=== PATIENT | male | born 1955 | race Caucasian/White ===

== ENCOUNTER 2018-09-05 09:37 | Inpatient (IN) ==
[2018-09-05] MEDS ORDERED: DAPTOmycin 450 MG in SYRINGE 0 ML IV ONE (09:59)
[2018-09-05] MEDS ORDERED: PIPERACILLIN/TAZOBACTAM 4.5 GM/120 ML BAG IV STA (09:59)
[2018-09-05] MEDS ORDERED: SODIUM CHLORIDE 0.9% 1000ML 1,000 ML IV SCH ×3 (10:00→22:00)
--- NOTE | 2018-09-05 10:19 | XRay Report ---
XR chest 1V portable HISTORY: 62 years-old Male fever acute fever COMPARISON: None available TECHNIQUE: Portable AP view of the chest FINDINGS: Cardiomediastinal and hilar silhouettes are within normal limits. Mild left hemidiaphragmatic elevati on. Minimal subsegmental left basilar atelectasis. There is no pneumothorax, pleural effusion, focal airspace consolidation or overt pulmonary edema. Degenerative changes of the shoulders and spine. IMPRESSION: Mild left hemidiaphragmatic elevation without acute process. The above report was generated using voice recognition software. It may contain grammatical, syntax o r spelling errors. Electronically signed by: Obi Rdz M.D. 09/05/2018 10:18 AM
[2018-09-05 10:41] LABS: Basophils # (auto) 0.01 K/uL (0-0.2); Basophils % (auto) 0.1 %; Eosinophils # (auto) 0.05 K/uL (0-0.5); Eosinophils % (auto) 0.4 %; Hemoglobin 11.6 g/dL (14.0-18.0); Immature Granulocytes # (auto) 0.05 K/uL (0.00-0.02); Immature Granulocytes % (auto) 0.4 %; Lymphocytes # (auto) 0.99 K/uL (1.2-3.4); Lymphocytes % (auto) 7.2 %; Mean Corpuscular Hgb Conc 34.1 g/dL (32-36); Mean Corpuscular Volume 91.6 fL (80-100); Mean Platelet Volume 9.1 fL (7.4-10.4); Monocytes # (auto) 0.94 K/uL (0.11-0.59); Monocytes % (auto) 6.8 %; Neutrophils # (auto) 11.78 K/uL (1.4-6.5); Neutrophils % (auto) 85.1 %; Platelet Count 254 K/uL (130-400); RDW Coefficient of Variation 13.9 % (11.5-14.5); RDW Standard Deviation 46.8 fL (36.4-46.3); Red Blood Count 3.71 M/uL (4.7-6.1); White Blood Count 13.82 K/uL (4.8-10.8)
[2018-09-05 10:48] LABS: Alanine Aminotransferase 16 U/L (12-78); Albumin Level 2.8 gm/dl (3.4-5.0); Aspartate Aminotransferase 25 U/L (15-37); BUN Creatinine Ratio 16.1 (10-20); Blood Urea Nitrogen 17 mg/dl (7-18); Calcium 9.3 mg/dl (8.5-10.1); Carbon Dioxide 30 mmol/L (21-32); Chloride 99 mmol/L (98-107); Creatinine Clr Calc Pharmacy 77.2 ml/min; Est GFR (Non-African American) 76.8; Glucose 95 mg/dl (70-99); Sodium 135 mmol/L (136-145)
[2018-09-05 10:53] LABS: Albumin Globulin Ratio 0.7 (0.9-2); Alkaline Phosphatase 126 U/L (45-117); Bilirubin,Total 0.7 mg/dl (0.2-1); Globulin 4.1 gm/dl (2.5-4.0); Total Protein 6.9 gm/dl (6.4-8.2); Troponin I < 0.015 ng/ml (0-0.045)
[2018-09-05 12:12] LABS: Appearance Urine Clear (Clear); Bilirubin Urine Negative (Negative); Blood Urine Trace (Negative); Color Urine Yellow; Glucose Urine UA Negative (Negative); Ketones Urine Negative (Negative); Leukocyte Esterase Urine Negative (Negative); Nitrite Urine Negative (Negative); Protein Urine Negative (Negative); Specific Gravity Urine 1.011 (1.000-1.030); Urobilinogen Urine Negative (Negative); pH Urine 6.5 (4.5-7.5)
[2018-09-05 12:24] LABS: RBC Urine Automated 0-4 /hpf (0-4)
[2018-09-05 12:26] LABS: Bacteria Urine Automated Negative (Negative)
[2018-09-05] MEDS ORDERED: MoRPHine SULFATE 2 MG/ML CARP IV PRN (12:46)
[2018-09-05] MEDS ORDERED: BISACODYL 5 MG TABEC PO ONE (12:46)
[2018-09-05] MEDS ORDERED: MoRPHine SULFATE 2 MG/ML CARP IV STA (12:48)
--- NOTE | 2018-09-05 13:26 | History & Physical Report ---
Date of Service September 05, 2018 Assessment & Plan (1) MRSA bacteremia: ` Outpatient blood culture 09/04/2018: MRSA bacteremia -Repeat blood cultures ordered -ID consulted appreciate input recommends daptomycin and Teflaro-ordered (2) Cellulitis of chest wall: (3) Septic joint of left shoulder region: Pt presented with onset of left shoulder pain 2 weeks ago. Patient has had significant progression of left shoulder pain extending to left neck and left chest. Had several outpatient visits in ER visit for left shoulder pain. Patient had MRI C-spine on 09/02/2018: 1. No fractures or subluxation within the cervical spine. 2. [id number] degenerative disc disease and mild facet osteoarthritis throughout the cervical spine as described above. This results in multilevel bilateral neural foraminal narrowing most pronounced at the C4-C5 level. 3. No significant central canal narrowing. 4. Normal cervical spinal cord. 09/02/2018 left shoulder x-ray: Impression: No fracture. Alignment is WNL. Mild acromioclavicular osteoarthritis. Soft tissues are unremarkable. Patient had reported fevers outpatient. 09/04/2018 patient had outpatient labs revealing white count 15,000, blood cultures positive for MRSA and patient was referred to the ER today. In ER patient initially afebrile, peak: 110, RR: 20, BP: 136/79, 97% on room air. WBC: 13. POC lactic acid: 0.8 -In ER patient was started on daptomycin, Zosyn. Received [address] CHEST: 1. Findings highly suspicious for septic arthritis of the left sternoclavicular joint with secondary severe myositis/pyomyositis involving the left pectoralis muscle complex, left sternoclavicular muscle, and left subclavius muscle. However, no CT evidence of osteomyelitis. The presence of developing intramuscular abscesses in the left pectoralis muscle complex is suspected as well as phlegmon in the anterior superior mediastinum or immediately superficial to the anterior superior mediastinum. 2. Either severe stenosis or less likely thrombosis of the left subclavian vein. A dedicated left upper extremity Doppler examination with special attention to the left subclavian and left axillary veins it is recommended for further assessment. 3. Minimal left basilar atelectasis. 4. Small pericardial effusion. CT SOFT TISSUE NECK: Extensive infectious process within the left lower neck and upper chest. The findings raise the possibility of septic arthritis of the left sternoclavicular joint with associated myositis/pyomyositis of the left pectoralis and sternoclavicular muscles with suspected developing intramuscular abscesses. Left supraclavicular abscess results in moderate narrowing of the distal left internal jugular vein. Possible thrombus within the left axillary vein which can be assessed with left upper extremity venous Doppler to exclude septic thrombophlebitis. Inflammation extends into the superior mediastinum and close clinical follow-up is recommended given the potential for mediastinitis. Trace left pleural effusion. -Repeat blood cultures pending -ID consulted and recommends daptomycin and Teflaro -CT Surgery consulted - planned procedure tomorrow -NPO after midnight -Pending LUE US -Clear liquids -Speech eval -IVF -Morphine, oxycodone prn pain -CBC, BMP in am (4) Hypothyroidism: -On levothyroxine DVT Prophylaxis: SCDs Full Code as per discussion with pt Follows with Dr Israel Tee for routine care Pt was seen and care coordinated with Dr Chong. See addendum History of Present Illness Chief Complaint: Abnormal labs Primary Care Provider: Israel Tee, Pt is 62 y/o M with PMH hypothyroidism was referred to ER from PCP's office for abnormal labs - Positive blood cultures. Patient reports 2 weeks ago started with left anterior shoulder pain that radiated to lateral and posterior neck. Patient was seen by PCP and 08/25/2018 and was thought secondary to muscle strain and was started on baclofen and Medrol. Patient had continued pain and was seen in ER 08/28/2018 and at that time his WBC: 10 and was given prescription for oxycodone. Patient followed up with PCP 09/02/2018 with continued pain and had left finger paresthesias. At that time also reported urinary urgency and did not make it to the bathroom a couple of times. Denies any other urinary incontinence, dysuria. On 09/02/2018 patient had an MRI C-spine which showed no fracture and showed degenerative disc disease. X-ray left shoulder unremarkable. Patient states 09/03/2018 developed fever. He had negative urine culture. 09/04/2018 patient had outpatient lab work and had noted WBC of 15,000 and had blood cultures drawn. Today blood cultures positive methicillin r esistant staph aureus patient was referred to ER. Patient reports limited ROM of left shoulder as causes increased pain. ROM of neck causes pain also. He was not aware that he had any chest edema or erythema. He does note that he has been having trouble swallowing large bites of solid food over the past 4 days. He denies choking episodes. Reports nausea last week no vomiting. Patient states prior to pain he was weightlifting otherwise denies any known trauma. Denies any open wounds or lesions. Denies any rashes or known insect bites/stings. Pt reports no BM in couple of days since taking pain medication. C/O NAIR several days ago, none today. Denies back pain, diaphoresis, dizziness, syncope, vision changes, CP, SOB, orthopnea, palpitations, cough, sore throat, rhinorrhea, abdominal pain, paresthesias, weakness, extremity weakness, extremity edema, rashes, dysuria, hematuria. Denies any history of valve replacement, joint replacement. Allergies Allergy/AdvReac Type Severity Reaction Status Date / Time No Known Allergies Allergy Unverified 09/05/18 11:22 Home Medications Home Medications Medication Instructions Recorded Confirmed Type levothyroxine 50 mcg PO QAM 08/28/18 09/05/18 History oxycodone-acetaminophen [Percocet] 1 tab PO Q6H PRN #14 tab 08/28/18 09/05/18 Rx trazodone 50 mg PO HS 08/28/18 09/05/18 History cyclobenzaprine 10 mg PO BID 09/05/18 09/05/18 History Past Med/Surg History Medical History Seizure disorder (Chronic) Last seizure in high school. 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 Beliefs That Will Affect Care: None Current Living Situation: Spouse current occupational status: employed current occupation: [employer] Other Information That Helps Us Care for You: No Feels Safe at Home: Yes Safety Concerns: Feels Safe At This Time Smoking Status: Never smoker Do You Dip or Chew Tobacco: No Second Hand Exposure: No Tobacco Cessation Education Requested by Patient: No Hx Alcohol Use: No Hx Substance Use: No Review of Systems Review of Systems: All systems reviewed & are unremarkable except as noted in HPI & below Physical Exam Physical Exam: General: no acute distress, ill appearing, WDWN Head: normocephalic, atraumatic Eyes: PERRL, EOM's intact, conjunctiva non-injected, anicteric ENT: normal inspection external ears, nose, mucous membranes mildly dry Neck: supple, trachea midline, + edema lateral neck without erythema, + tenderness to palpation; posterior neck without erythema and non-tender to palpation, limited flexion and extension neck with increased tenderness Lungs: clear, no respiratory distress, no wheezing/rhonchi/rales Chest wall: +erythema, edema and warmth to left anterior chest wall over left pectoralis extending to sternum and clavicle, +significant tenderness to palpation CV: sinus tachycardia, P: 110, no murmur, no pretibial edema Abd: normal BS, soft, non-tender Ext: L Shoulder: No significant erythema of shoulder, Limited active ROM left shoulder and with significant tenderness, +tenderness to palpation anterior shoulder, clavicular region. extension of flexion of L elbow and wrist and fingers intact; distal pulses intact. Neuro: A&O x 3, no focal deficits noted, normal affect Skin: warm, dry, as above in chest Results & Data Vital Signs (Past 12 Hours) Vital Signs Temp Pulse Pulse Resp BP BP Pulse Ox 09/05/18 11:37 98 H 16 157/96 H 97 09/05/18 09:39 36.7 C 110 H 20 136/79 97 Laboratory Results Short CBC 09/05/18 Range/Units 10:12 WBC 13.82 H (4.8-10.8) K/uL Hgb 11.6 L (14.0-18.0) g/dL Hct 34.0 L (42-52) % Plt Count 254 (130-400) K/uL BMP 09/05/18 10:12 Sodium 135 L Potassium 4.0 Chloride 99 Carbon Dioxide 30 BUN 17 Creatinine 1.05 Glucose 95 Calcium 9.3 Cardiac Enzymes 09/05/18 Range/Units 10:12 Troponin I < 0.015 (0-0.045) ng/ml Liver Function 09/05/18 Range/Units 10:12 Total Bilirubin 0.7 (0.2-1) mg/dl AST 25 (15-37) U/L ALT 16 (12-78) U/L Alkaline Phosphatase 126 H (45-117) U/L Albumin 2.8 L (3.4-5.0) gm/dl Urine 09/05/18 Range/Units 11:50 Urine Color Yellow Urine Appearance Clear (Clear) Urine pH 6.5 (4.5-7.5) Ur Specific [place] 1.011 (1.000-1.030) Urine Protein Negative (Negative) Urine Glucose (UA) Negative (Negative) Diagnostic Findings CXR: IMPRESSION: Mild left hemidiaphragmatic elevation without acute process. CT CHEST: IMPRESSION: 1. Findings highly suspicious for septic arthritis of the left sternoclavicular joint with secondary severe myositis/pyomyositis involving the left pectoralis muscle complex, left sternoclavicular muscle, and left subclavius muscle. However, no CT evidence of osteomyelitis. The presence of developing intramuscular abscesses in the left pectoralis muscle complex is suspected as well as phlegmon in the anterior superior mediastinum or immediately superficial to the anterior superior mediastinum. 2. Either severe stenosis or less likely thrombosis of the left subclavian vein. A dedicated left upper extremity Doppler examination with special attention to the left subclavian and left axillary veins it is recommended for further assessment. 3. Minimal left basilar atelectasis. 4. Small pericardial effusion. CT SOFT TISSUE NECK: IMPRESSION: Extensive infectious process within the left lower neck and upper chest. The findings raise the possibility of septic arthritis of the left sternoclavicular joint with associated myositis/pyomyositis of the left pectoralis and sternoclavicular muscles with suspected developing intramuscular abscesses. Left supraclavicular abscess results in moderate narrowing of the distal left internal jugular vein. Possible thrombus within the left axillary vein which can be assessed with left upper extremity venous Doppler to exclude septic thrombophlebitis. Inflammation extends into the superior mediastinum and close clinical follow-up is recommended given the potential for mediastinitis. Trace left pleural effusion. Supervising Physician Co-Signing Physician Notes Attending addendum: Seen and examined, care coordinated with Anna Coleman PA-C Labs and images reviewed This is a 62-year-old significant past medical history presented to ER with intractable left neck shoulder and anterior chest wall pain associate with fever and chills His symptoms been ongoing for the past 2 weeks Culture drawn to yesterday at [facility] on 09/04/2018 2 bottles positive for Staphylococcus aureus MRSA Patient admitted to telemetry, started with empiric antibiotic with daptomycin, repeat blood cultures ordered CT chest and neck with contrast ordered CT chest with contrast: And CT neck with contrast reports reviewed Finding highly suspicious for septic arthritis of the left sternoclavicular joint-with extensive myositis with possible abscess involving left pectoralis muscle/left sternoclavicular muscle There is concern for developing intramuscular abscess/as well as infection in anterior superior mediastinal or is immediately superficial to the anterior superior mediastinum Severe stenosis or less likely thrombosis of left subclavian vein, a dedicated left upper extremity Doppler examination with special attention to the left subclavian and left axillary vein is recommended for further assessment CT surgery consulted Plan for surgical I&D procedure tomorrow discussed the case with infectious disease Dr Zafar -we will DC Zosyn, continue daptomycin, added Teflaro Please refer to further documentation by Kayla Coleman PA-C for discussion of other issues Juana Chong MD
[2018-09-05] MEDS ORDERED: IOVERSOL 100ml IV PRN (13:34)
[2018-09-05] MEDS ORDERED: ONDANSETRON INJ 2 MG/ML 2 ML VIAL IV PRN (13:46)
[2018-09-05] MEDS ORDERED: ALUMINUM/MAGNESIUM SUSP 30 ML UDC PO PRN (13:46)
[2018-09-05] MEDS ORDERED: MAGNESIUM HYDROXIDE SUSP 30 ML UDC PO PRN (13:46)
[2018-09-05] MEDS ORDERED: ACETAMINOPHEN 325 MG TAB PO PRN (13:46)
[2018-09-05] MEDS ORDERED: POLYETHYLENE (MIRALAX) 17 GM PACK PO PRN (13:46)
[2018-09-05] MEDS ORDERED: PIPERACILL/TAZOBAC CONSULT ACTIVE PRN (13:46)
--- NOTE | 2018-09-05 13:53 | CT Scan Report ---
CT chest w con CLINICAL HISTORY: 62 years-old Male presenting with left-sided pain, chest wall pain, chest wall infe ction /abscess. TECHNIQUE: Multidetector CT imaging of the chest was performed after the administration of intravenou s contrast. IV contrast: 94 mL of Optiray 320. One or more dose lowering techniques were used consist ent with the principles of ALARA (as low as reasonably achievable), including automatic exposure cont rol, mA or kV adjustment to individual patient size, and/or use of iterative reconstruction. COMPARISON: None. CT DOSE (mGy.cm): The estimated cumulative dose is 725.73. FINDINGS: Product Assurance Engineer topogram: Unremarkable. Soft tissues: Swelling and inflammatory change centered around the left sternoclavicular joint, which is itself distended with fluid. There is heterogeneous enhancement of the left pectoralis muscle com plex with suggestion of hypoattenuation likely indicating developing collections (series 7 image 53). Swelling of the left subclavian is muscle and inflammation deep to the left sternoclavicular joint w ith resultant inflammatory change either in the anterior mediastinum or immediately superficial to th e anterior superior mediastinum. The left brachiocephalic vein is compressed at the confluence of the left internal jugular and left subclavian vein. The left subclavian vein is poorly delineated and is suspected to be severely stenotic due to mass effect. An alternate diagnostic consideration is throm bosis or direct involvement of the left subclavian vein. The left axillary vein is distended with hyp oenhancement most suggestive of delayed opacification or less likely thrombosis. The aortic arch and major branch vessels are patent and nonstenotic. Inflammatory change extends into the left neck with edema in the left sternoclavicular muscle and extensive skin thickening and subcutaneous fat infiltra tion. This also extends inferiorly involving a majority of the left chest wall anterolaterally. Lyubov l heart size. Coronary artery calcification. Small pericardial effusion. No pleural effusion. Upper a bdomen normal. Lungs and airways: No pneumothorax. Central airways patent. Pulmonary arteries are not significantly enlarged relative to adjacent bronchi. No interlobular septal thickening. Dependent consolidation to a minimal degree in the left lung base likely atelectasis. No other focal infiltrate or nodule. Mass effect on the anterior paramediastinal left apex. There is no significant involvement of the lung par enchyma. Musculoskeletal: Fluid distended left sternoclavicular joint. There is no osseous erosion or perioste al reaction to suggest CT evidence of osteomyelitis. IMPRESSION: 1. Findings highly suspicious for septic arthritis of the left sternoclavicular joint with secondary severe myositis/pyomyositis involving the left pectoralis muscle complex, left sternoclavicular musc le, and left subclavius muscle. However, no CT evidence of osteomyelitis. The presence of developing intramuscular abscesses in the left pectoralis muscle complex is suspected as well as phlegmon in the anterior superior mediastinum or immediately superficial to the anterior superior mediastinum. 2. Either severe stenosis or less likely thrombosis of the left subclavian vein. A dedicated left up per extremity Doppler examination with special attention to the left subclavian and left axillary vei ns it is recommended for further assessment. 3. Minimal left basilar atelectasis. 4. Small pericardial effusion. The report will be called/faxed according to standard departmental protocol. Electronically signed by: Dmitriy Doll M.D. 09/05/2018 1:52 PM
--- NOTE | 2018-09-05 13:55 | CT Scan Report ---
CT OF THE NECK WITH IV CONTRAST CLINICAL HISTORY: Neck pain. Evaluate for abscess. COMPARISON STUDY: MRI of the cervical spine September 02, 2018. TECHNIQUE: Following IV administration of 94 mL of Optiray-320, helical axial images of the neck wer e obtained. Sagittal and coronal reconstructions were viewed. Automated exposure control was utiliz ed for the study. A dose lowering technique was utilized adhering to the principles of ALARA. CT DOSE: 725.73 mGy.cm FINDINGS: Visualized portions of the intracranial contents are unremarkable. There is no prevertebra l edema. The epiglottis is normal. There is no abscess within the upper neck. Note is made of extensi ve inflammatory process which appears to be centered on the left sternoclavicular joint. There is inc reased fluid within the left sternoclavicular joint. Extensive inflammation extends into the left pec toralis major muscle. There is a subtle peripherally enhancing fluid collection within the left pecto ralis muscle on axial image 104 of 109 which is suspicious for developing intramuscular abscess. The inflammatory process extends into the left supraclavicular region. Note is made of a 1.8 cm left supr aclavicular fluid collection on image 86 with mass effect upon the left internal jugular vein which r emains patent. There is moderate narrowing of the distal left internal jugular vein. There is dilatat ion of the left axillary vein and its branches. Involvement of the left sternoclavicular muscle is al so noted with heterogeneity and adjacent infiltration. Inflammatory process may extend into the anter ior mediastinum. A trace left pleural effusion is noted. The chest will be reported separately. The a irways patent. There is no CT evidence for osteomyelitis. IMPRESSION: Extensive infectious process within the left lower neck and upper chest. The findings raise the possi bility of septic arthritis of the left sternoclavicular joint with associated myositis/pyomyositis of the left pectoralis and sternoclavicular muscles with suspected developing intramuscular abscesses. Left supraclavicular abscess results in moderate narrowing of the distal left internal jugular vein. Possible thrombus within the left axillary vein which can be assessed with left upper extremity venou s Doppler to exclude septic thrombophlebitis. Inflammation extends into the superior mediastinum and close clinical follow-up is recommended given the potential for mediastinitis. Trace left pleural eff usion. Electronically signed by: Tree Leon M.D. 09/05/2018 1:54 PM
--- NOTE | 2018-09-05 14:13 | Hospitalist Progress Note ---
Date of Service September 05, [address] chest with contrast: And CT neck with contrast reviewed Finding highly suspicious for septic arthritis of the left sternoclavicular joint-with extensive myositis with possible abscess involving left pectoralis muscle/left sternoclavicular muscle There is concern for developing intramuscular abscess/as well as infection in anterior superior mediastinal or is immediately superficial to the anterior superior mediastinum Severe stenosis or less likely thrombosis of left subclavian vein, a dedicated left upper extremity Doppler examination with special attention to the left subclavian and left axillary vein is recommended for further assessment General surgery consulted, Case discussed with on-call general surgery PA, patient will be evaluated by the team soon discussed the case with infectious disease Dr Zafar -given the complexity of inflammation/infection and widespread involvement including intramuscular, sternoclavicular joint, multiple vessels, possible superior mediastinal involvement, pt will benefit with transfer to Tertiary care for complex /multispeciality intervention Results & Data Vital Signs (Past 12 Hours) Vital Signs Temp Pulse Pulse Resp BP BP Pulse Ox 09/05/18 13:47 37.8 C H 118 H 20 154/88 H 99 09/05/18 11:37 98 H 16 157/96 H 97 09/05/18 09:39 36.7 C 110 H 20 136/79 97
[2018-09-05] MEDS: DOCUSATE SODIUM 100 MG CAP PO SCH ×2 (14:17→21:45)
[2018-09-05] MEDS ORDERED: ACETAMINOPHEN 1,000 MG/100 ML VIAL IV STA (14:21)
[2018-09-05] MEDS ORDERED: ACETAMINOPHEN 1,000 MG/100 ML VIAL IV PRN (14:22)
[2018-09-05] MEDS ORDERED: [UNRECOGNIZED DRUG - REMARK] PRN (14:26)
[2018-09-05] MEDS ORDERED: CEFTAROLINE FOSAMIL ACETATE 600 MG in SODIUM CHLORIDE 0.9% 250 ML IV ONE (14:30)
--- NOTE | 2018-09-05 14:30 | Infectious Disease Consult ---
Date of Consultation September 05, 2018 Assessment & Plan (1) MRSA bacteremia: 62-year-old male with MRSA bacteremia left chest wall, neck, and shoulder phlegmon with developing abscesses. No obvious original source of infection apparent. Have recommended addition of ceftaroline 600 mg every 12 hours to daptomycin, and discussed with hospitalist service the likelihood of transfer to tertiary care center for further management given the extent and site of infection. Will follow while here. (2) Abscess of chest wall: History of Present Illness Reason for Consultation: MRSA bacteremia Attending Physician: Juana Chong MD History of Present Illness 62-year-old male with history of seizure disorder, hypothyroidism, otherwise in good health was well until approximately 2 weeks ago, when he developed onset of left shoulder and neck pain. Symptoms gradually worsened, saw his primary care doctor who prescribed baclofen and Solu-Medrol. Symptoms failed to improve, was seen in the emergency room on the ninth where was thought to have musculoskeletal strain, given analgesics and discharged home. Then developed progressively worsening symptoms along with fever and shaking chills. Was found to have leukocytosis and subsequent blood cultures have returned positive for MRSA. Had CT scan done, read by me, which shows evidence of extensive infection in the left shoulder, neck, and possibly extending into the mediastinum with abscess formation in the pectoralis and supraclavicular muscles. Has been start ed on daptomycin and Zosyn. Follow-up blood cultures are pending. Patient currently having rigors. Allergies Allergy/AdvReac Type Severity Reaction Status Date / Time No Known Allergies Allergy Unverified 09/05/18 11:22 Home Medications Home Medications Medication Instructions Recorded Confirmed Type levothyroxine 50 mcg PO QAM 08/28/18 09/05/18 History oxycodone-acetaminophen [Percocet] 1 tab PO Q6H PRN #14 tab 08/28/18 09/05/18 Rx trazodone 50 mg PO HS 08/28/18 09/05/18 History cyclobenzaprine 10 mg PO BID 09/05/18 09/05/18 History Patient History Medical History Seizure disorder (Chronic) Last seizure in high school. Off meds since Hypothyroidism (Chronic) Hypothyroidism Surgical History No significant past surgical history Family History Other COPD (chronic obstructive pulmonary disease) Heart disease Social History Preferred Language: Tanzanian Communication Ability: Effective Maternal Child Nurse Required: No Beliefs That Will Affect Care: None Current Living Situation: Spouse current occupational status: employed current occupation: [employer] Other Information That Helps Us Care for You: No Feels Safe at Home: Yes Safety Concerns: Feels Safe At This Time Smoking Status: Never smoker Do You Dip or Chew Tobacco: No Second Hand Exposure: No Tobacco Cessation Education Requested by Patient: No Hx Alcohol Use: No Hx Substance Use: No Review of Systems Review of Systems: All systems reviewed & are unremarkable except as noted in HPI & below Physical Exam Constitutional: WD/WN, vitals as above + in distress and + diaphoretic Eyes: PERRL, conjunctivae normal, anicteric sclerae ENMT: external ear and nose normal, oropharynx normal Neck: trachea midline, no thyromegaly neck nontender Respiratory: normal respiratory effort, lungs clear to auscultation normal percussion; does not use accessory muscles Cardiovascular: Rate/Rhythm: regular rate and regular rhythm Heart Sounds: normal S1 and normal S2; no gallop, no murmur and no cardiac rub Vessels: normal peripheral pulses; no JVD Gastrointestinal (Abdomen): normal bowel sounds, soft, nontender, no hepatospl enomegaly Musculoskeletal: no cyanosis or clubbing, extremities motor strength 5/5 Spine: thoracic spine normal to inspection and lumbar spine normal to inspection; no cervical spinal tenderness Skin: normal turgor and + erythema (Left anterior chest wall and shoulder area with erythema and induration); no rashes Neurologic: patellar DTR's 2+ bilat, sensation intact no focal motor deficits Psychiatric: A+Ox3, euthymic affect Orientation: cooperative Lymphatic: no cervical or axillary lymphadenopathy no inguinal lymphadenopathy Results & Data Vital Signs (Past 12 Hours) Vital Signs Temp Pulse Pulse Resp BP BP Pulse Ox 09/05/18 13:47 37.8 C H 118 H 20 154/88 H 99 09/05/18 11:37 98 H 16 157/96 H 97 09/05/18 09:39 36.7 C 110 H 20 136/79 97 Laboratory Results Short CBC 09/05/18 Range/Units 10:12 WBC 13.82 H (4.8-10.8) K/uL Hgb 11.6 L (14.0-18.0) g/dL Hct 34.0 L (42-52) % Plt Count 254 (130-400) K/uL BMP 09/05/18 10:12 Sodium 135 L Potassium 4.0 Chloride 99 Carbon Dioxide 30 BUN 17 Creatinine 1.05 Glucose 95 Calcium 9.3 Cardiac Enzymes 09/05/18 Range/Units 10:12 Troponin I < 0.015 (0-0.045) ng/ml Liver Function 09/05/18 Range/Units 10:12 Total Bilirubin 0.7 (0.2-1) mg/dl AST 25 (15-37) U/L ALT 16 (12-78) U/L Alkaline Phosphatase 126 H (45-117) U/L Albumin 2.8 L (3.4-5.0) gm/dl Urine 09/05/18 Range/Units 11:50 Urine Color Yellow Urine Appearance Clear (Clear) Urine pH 6.5 (4.5-7.5) Ur Specific [place] 1.011 (1.000-1.030) Urine Protein Negative (Negative) Urine Glucose (UA) Negative (Negative) Diagnostic Findings Microbiology 09/05/18 10:12 Blood Aerobic Blood Culture - Final 09/05/18 10:12 Blood Aerobic Blood Culture - Final 09/05/18 10:12 Blood Anaerobic Blood Culture - Preliminary CT OF THE NECK WITH IV CONTRAST CLINICAL HISTORY: Neck pain. Evaluate for abscess. COMPARISON STUDY: MRI of the cervical spine September 02, 2018. TECHNIQUE: Following IV administration of 94 mL of Optiray-320, helical axial images of the neck were obtained. Sagittal and coronal reconstructions were viewed. Automated exposure control was utilized for the study. A dose lowering technique was utilized adhering to the principles of ALARA. CT DOSE: 725.73 mGy.cm FINDINGS: Visualized portions of the intracranial contents are unremarkable. There is no prevertebral edema. The epiglottis is normal. There is no abscess within the upper neck. Note is made of extensive inflammatory process which appears to be centered on the left sternoclavicular joint. There is increased fluid within the left sternoclavicular joint. Extensive inflammation extends into the left pectoralis major muscle. There is a subtle peripherally enhancing fluid collection within the left pectoralis muscle on axial image 104 of 109 which is suspicious for developing intramuscular abscess. The inflammatory process extends into the left supraclavicular region. Note is made of a 1.8 cm left supraclavicular fluid collection on image 86 with mass effect upon the left internal jugular vein which remains patent. There is moderate narrowing of the distal left internal jugular vein. There is dilatation of the left axillary vein and its branches. Involvement of the left sternoclavicular muscle is also noted with heterogeneity and adjacent infiltration. Inflammatory process may extend into the anterior mediastinum. A trace left pleural effusion is noted. The chest will be reported separately. The airways patent. There is no CT evidence for osteomyelitis. IMPRESSION: Extensive infectious process within the left lower neck and upper chest. The findings raise the possibility of septic arthritis of the left sternoclavicular joint with associated myositis/pyomyositis of the left pectoralis and sternoclavicular muscles with suspected developing intramuscular abscesses. Left supraclavicular abscess results in moderate narrowing of the distal left internal jugular vein. Possible thrombus within the left axillary vein which can be assessed with left upper extremity venous Doppler to exclude septic thrombophlebitis. Inflammation extends into the superior mediastinum and close clinical follow-up is recommended given the potential for mediastinitis. Trace left pleural effusion. Electronically signed by: Tree Leon M.D. 09/05/2018 1:54 PM Dictated: 09/05/18 1336 Transcribed: 09/05/18 1336
[2018-09-05] MEDS ORDERED: HYDROmorphone INJ 1 MG/ML SYRINGE IV STA (14:52)
[2018-09-05] MEDS ORDERED: HYDROmorphone INJ 1 MG/ML SYRINGE ONE (14:57)
[2018-09-05] MEDS ORDERED: PIPERACILLIN/TAZOBACTAM 3.375 GM in DEXTROSE 5% 100 ML IV SCH (15:00)
[2018-09-05] MEDS ORDERED: HYDROmorphone INJ 1 MG/ML SYRINGE IV PRN (15:19)
--- NOTE | 2018-09-05 15:51 | Emergency Department Note ---
Entered by Reyes Rob acting as a scribe for ED Provider Note CHIEF COMPLAINT: Abnormal Labs HISTORY OF PRESENT ILLNESS: The patient is a 62 year old male who presents to the Emergency Room with complaints of back and neck pain as well as abnormal lab results. The patient was at his primary care physician today because he was experiencing some pain he was having in his neck and back. About 4 days ago, the patient was also having a fever so he also needed some blood work done at the PCP during his visit. The results were as follows: both bottles of the set were positive, [place] blood [place] [id number], chemistry panel was unremarkable. A sedimentation was done and read as 66. A CRP was done and read as 341. Urinalysis showed some trace blood. Urine culture was negative.They were able to find that he had MRSA bacteremia staff. During the hospital visit he did not have a fever and he was prescribed percocets. While he was at the PCP, they also had some Xrays done and a MRI, the results were as followed: Xray of spine shows minor degenerative changes. Xray of the shoulder was negative.The patient rates his pain as a 3 out of 10 in s everity. He states that most of his pain is near his shoulder. The patient is not allergic to anything. The patient is constipated and also has some burning in his ears. The patient is not diabetic. The patient takes thyroid medication. Pt denies LOC, headache, chills, visual changes, chest pain, breathing difficulties, nausea, vomiting, abdominal pain, melena, hematochezia, urinary symptoms, numbness, weakness, lymphadenopathy, rash, or other complaints. REVIEW OF SYSTEMS: See HPI for pertinent positives and negatives. A total of ten systems were reviewed and were otherwise negative. PMHx/PSHx: Trapezius muscle spasm Hypothyroidism SOCIAL HISTORY: Patient lives at home. PHYSICAL EXAM: GENERAL: Awake, alert, well-appearing, in no distress HENT: Normocephalic, atraumatic. Oropharynx unremarkable. EYES: PERRL. Normal conjunctiva. Sclera non-icteric. NECK: Inspection normal. Non-tender. Supple. No nuchal rigidity. FROM. No masses. RESPIRATORY: Clear to auscultation. No wheezes. No rales. Normal respiratory effort. CARDIAC: Borderline tachycardic rate. Normal rhythm. No murmurs. No rubs. Extremities warm and well perfused. Pulses equal. No JVD. GI: Soft, non-distended. No tenderness to palpation. No rebound or guarding. No masses. RECTAL: Deferred. MUSCULOSKELETAL: Atraumatic. Chest examination reveals no tenderness. The back is symmetrical on inspection without obvious abnormality. There is no CVA tenderness to palpation. No joint edema. LOWER EXTREMITIES: Calves are equal size bilaterally and non-tender. No edema. No discoloration. CHEST: swelling, redness, and tenderness in the right upper chest NEURO: Normal sensorium. No sensory or motor deficits noted. SKIN: No rash or jaundice noted. EMERGENCY DEPARTMENT COURSE: 951: Past medical records reviewed. The patient was evaluated in room B03B, and a complete history and physical examination were performed. 11:56: I spoke with Pippa Lu PA-C under Dr. Chong, about the patients case and she said Dr. Chong will accept to admit the patient for further evaluation. 12:00 The patient has been admitted. MEDICAL DECISION MAKING: Prior records/ancillary studies reviewed. Outpatient blood cultures revealed MRSA bacteremia in 2 bottles. Triage Nursing notes reviewed and agree them. The patient's history was concerning for possible bacteremia. Differential diagnosis: Etiologies such as cellulitis, abscess, urinary tract infection, sepsis, as well as others were entertained. Physical examination: Tenderness in the left upper chest. No obvious fluctuance. ER treatment provided: IV Zosyn IV daptomycin On reassessment the patient was stable. Diagnostics interpreted by me: The labs revealed mild leukocytosis on CBC. Chemistry panel was unremarkable. Procalcitonin 0.5. Imaging studies: Chest imaging with negative for acute disease. Consultation: A consultation was placed with Pippa hospitalist. The case was discussed and diagnostics were reviewed. The patient was evaluated in the ER for further treatment. IMPRESSION: Bacteremia PLAN: Admitted The scribe's documentation has been prepared under my direction and personally reviewed by me in its entirety. I confirm that the note above accurately reflects all work, treatment, procedures, and medical decision making performed by me. Impression & Plan MRSA bacteremia Past Med/Surg History Medical History Seizure disorder (Chronic) Last seizure in high school. Off meds since Hypothyroidism (Chronic) Hypothyroidism Surgical History Hx of tonsillectomy (Chronic) No significant past surgical history Family History Other COPD (chronic obstructive pulmonary disease) Heart disease Social History Preferred Language: Polish Communication Ability: Effective Casing Sewer Required: No Beliefs That Will Affect Care: None Current Living Situation: Spouse current occupational status: employed current occupation: [employer] Other Information That Helps Us Care for You: No Feels Safe at Home: Yes Safety Concerns: Feels Safe At This Time Smoking Status: Never smoker Do You Dip or Chew Tobacco: No Second Hand Exposure: No Tobacco Cessation Education Requested by Patient: No Hx Alcohol Use: No Hx Substance Use: No Results & Data Vital Signs Vital Signs - 24 hr 09/05/18 09:39 09/05/18 11:37 Temperature 36.7 C Temperature Source Oral Sepsis Recent Fever Within 48 Hours No Sepsis New/Unexplained Change in Mental Status No Sepsis Action Taken by Nursing No Action Required Pulse Rate 110 H Pulse Rate [Apical] 98 H Respiratory Rate 20 16 Respiratory Depth Normal Blood Pressure 136/79 Blood Pressure [Right Arm] 157/96 H Blood Pressure Mean 98 Blood Pressure Mean [Right Arm] 116 Pulse Oximetry 97 97 Oxygen Delivery Method Room Air Room Air Home Medications Current Medication List: was personally reviewed by me Laboratory Data Attestation: I reviewed the patient's lab results. Result diagrams: 09/05/18 10:12 09/05/18 10:12 Lab Results 09/05/18 09/05/18 09/05/18 Range/Units 10:12 10:12 10:12 WBC 13.82 H (4.8-10.8) K/uL RBC 3.71 L (4.7-6.1) M/uL Hgb 11.6 L (14.0-18.0) g/dL Hct 34.0 L (42-52) % MCV 91.6 (80-100) fL MCH 31.3 (25-34) pg MCHC 34.1 (32-36) g/dL RDW Std Deviation 46.8 H (36.4-46.3) fL RDW Coeff of Amanda 13.9 (11.5-14.5) % Plt Count 254 (130-400) K/uL MPV 9.1 (7.4-10.4) fL Immature Gran % (Auto) 0.4 % Neut % (Auto) 85.1 % Lymph % (Auto) 7.2 % [place] % (Auto) 6.8 % Eos % (Auto) 0.4 % Baso % (Auto) 0.1 % Immature Gran # (Auto) 0.05 H (0.00-0.02) K/uL Neut # (Auto) 11.78 H (1.4-6.5) K/uL Lymph # (Auto) 0.99 L (1.2-3.4) K/uL [place] # (Auto) 0.94 H (0.11-0.59) K/uL Eos # (Auto) 0.05 (0-0.5) K/uL Baso # (Auto) 0.01 (0-0.2) K/uL Sodium 135 L (136-145) mmol/L Potassium 4.0 (3.5-5.1) mmol/L Chloride 99 (98-107) mmol/L Carbon Dioxide 30 (21-32) mmol/L Anion Gap 6.0 (3-11) BUN 17 (7-18) mg/dl Creatinine 1.05 (0.6-1.4) mg/dl Est Cr Clr Drug Dosing 77.2 ml/min Est GFR ( Amer) 89.0 Est GFR (Non-Af Amer) 76.8 BUN/Creatinine Ratio 16.1 (10-20) Glucose 95 (70-99) mg/dl POC Lactic Acid Mau (0.90-1.70) mmol/L Calcium 9.3 (8.5-10.1) mg/dl Total Bilirubin 0.7 (0.2-1) mg/dl AST 25 (15-37) U/L ALT 16 (12-78) U/L Alkaline Phosphatase 126 H (45-117) U/L Troponin I < 0.015 (0-0.045) ng/ml Total Protein 6.9 (6.4-8.2) gm/dl Albumin 2.8 L (3.4-5.0) gm/dl Globulin 4.1 H (2.5-4.0) gm/dl Albumin/Globulin Ratio 0.7 L (0.9-2) Procalcitonin 0.50 (0-0.5) ng/ml Urine Color Urine Appearance (Clear) Urine pH (4.5-7.5) Ur Specific [place] (1.000-1.030) Urine Protein (Negative) Urine Glucose (UA) (Negative) Urine Ketones (Negative) Urine Blood (Negative) Urine Nitrite (Negative) Urine Bilirubin (Negative) Urine Urobilinogen (Negative) Ur Leukocyte Esterase (Negative) Urine WBC (Auto) (0-5) /hpf Urine RBC (Auto) (0-4) /hpf U Hyaline Cast (Auto) (0-5) /lpf U Epithel Cells (Auto) (0-5) /lpf Urine Bacteria (Auto) (Negative) 09/05/18 09/05/18 Range/Units 10:15 11:50 WBC (4.8-10.8) K/uL RBC (4.7-6.1) M/uL Hgb (14.0-18.0) g/dL Hct (42-52) % MCV (80-100) fL MCH (25-34) pg MCHC (32-36) g/dL RDW Std Deviation (36.4-46.3) fL RDW Coeff of Amanda (11.5-14.5) % Plt Count (130-400) K/uL MPV (7.4-10.4) fL Immature Gran % (Auto) % Neut % (Auto) % Lymph % (Auto) % [place] % (Auto) % Eos % (Auto) % Baso % (Auto) % Immature Gran # (Auto) (0.00-0.02) K/uL Neut # (Auto) (1.4-6.5) K/uL Lymph # (Auto) (1.2-3.4) K/uL [place] # (Auto) (0.11-0.59) K/uL Eos # (Auto) (0-0.5) K/uL Baso # (Auto) (0-0.2) K/uL Sodium (136-145) mmol/L Potassium (3.5-5.1) mmol/L Chloride (98-107) mmol/L Carbon Dioxide (21-32) mmol/L Anion Gap (3-11) BUN (7-18) mg/dl Creatinine (0.6-1.4) mg/dl Est Cr Clr Drug Dosing ml/min Est GFR ( Amer) Est GFR (Non-Af Amer) BUN/Creatinine Ratio (10-20) Glucose (70-99) mg/dl POC Lactic Acid Mau 0.88 L (0.90-1.70) mmol/L Calcium (8.5-10.1) mg/dl Total Bilirubin (0.2-1) mg/dl AST (15-37) U/L ALT (12-78) U/L Alkaline Phosphatase (45-117) U/L Troponin I (0-0.045) ng/ml Total Protein (6.4-8.2) gm/dl Albumin (3.4-5.0) gm/dl Globulin (2.5-4.0) gm/dl Albumin/Globulin Ratio (0.9-2) Procalcitonin (0-0.5) ng/ml Urine Color Yellow Urine Appearance Clear (Clear) Urine pH 6.5 (4.5-7.5) Ur Specific [place] 1.011 (1.000-1.030) Urine Protein Negative (Negative) Urine Glucose (UA) Negative (Negative) Urine Ketones Negative (Negative) Urine Blood Trace H (Negative) Urine Nitrite Negative (Negative) Urine Bilirubin Negative (Negative) Urine Urobilinogen Negative (Negative) Ur Leukocyte Esterase Negative (Negative) Urine WBC (Auto) 1-5 (0-5) /hpf Urine RBC (Auto) 0-4 (0-4) /hpf U Hyaline Cast (Auto) 1-5 (0-5) /lpf U Epithel Cells (Auto) 5-10 H (0-5) /lpf Urine Bacteria (Auto) Negative (Negative) Administered Medications Docusate Sodium (Colace) 100 mg PO BID [facility] Stop: 10/05/18 13:59 Last Admin: 09/05/18 14:17 Dose: Not Given Documented by: [id number] Sodium Chloride (Nss 1000ml) 1,000 mls @ 125 mls/hr IV .Q8H [facility] Stop: 10/05/18 13:59 Last Admin: 09/05/18 14:44 Dose: 125 mls/hr Documented by: [id number] Ioversol (Optiray 320 100ml) 94 ml IV ONCE PRN PRN Reason: Interaction Checking Stop: 09/09/18 13:33 Last Admin: 09/05/18 13:34 Dose: 94 ml Documented by: [id number] Discontinued Medications Bisacodyl (Dulcolax) 10 mg PO NOW ONE Stop: 09/05/18 12:47 Last Admin: 09/05/18 14:16 Dose: Not Given Documented by: [id number] Hydromorphone HCl (Dilaudid) 1 mg IV NOW STA Stop: 09/05/18 14:53 Last Admin: 09/05/18 15:26 Dose: Not Given Documented by: [id number] Hydromorphone HCl (Dilaudid) Confirm Administered Dose 1 mg .ROUTE .STK-MED ONE Stop: 09/05/18 14:58 Last Admin: 09/05/18 14:59 Dose: 1 mg Documented by: [id number] Daptomycin 450 mg/ Syringe 9 mls @ 4.5 mls/min IV NOW ONE; Protocol Stop: 09/05/18 10:00 Last Admin: 09/05/18 10:43 Dose: 4.5 mls/min Documented by: [id number] Piperacillin Sod/Tazobactam Sod (Zosyn) 4.5 gm in 120 mls @ 200 mls/hr IV NOW STA Stop: 09/05/18 10:34 Last Infusion: 09/05/18 11:19 Dose: 0 mls/hr Documented by: [id number] Admin: 09/05/18 10:43 Dose: 200 mls/hr Documented by: [id number] Sodium Chloride (Nss 1000ml) 1,000 mls @ 999 mls/hr IV .Q1H1M [facility] Stop: 09/05/18 11:00 Last Infusion: 09/05/18 11:44 Dose: 0 mls/hr Documented by: [id number] Admin: 09/05/18 10:43 Dose: 999 mls/hr Documented by: [id number] Piperacillin Sod/Tazobactam (Sod 3.375 gm/ Dextrose) 115 mls @ 27.5 mls/hr IV Q8H [facility]; Protocol Stop: 09/15/18 14:59 Last Infusion: 09/05/18 15:10 Dose: 0 mls/hr Documented by: [id number] Admin: 09/05/18 14:45 Dose: 27.5 mls/hr Documented by: [id number] Acetaminophen (Ofirmev) 1,000 mg in 100 mls @ 400 mls/hr IV NOW STA Stop: 09/05/18 14:35 Last Infusion: 09/05/18 15:27 Dose: 0 mls/hr Documented by: [id number] Admin: 09/05/18 14:45 Dose: 400 mls/hr Documented by: [id number] Ceftaroline Fosamil 600 mg/ (Sodium Chloride) 270 mls @ 270 mls/hr IV NOW ONE Stop: 09/05/18 15:29 Last Admin: 09/05/18 15:29 Dose: 270 mls/hr Documented by: [id number] Morphine Sulfate (Morphine Sulfate) 1 mg IV NOW STA Stop: 09/05/18 12:49 Last Admin: 09/05/18 12:57 Dose: 1 mg Documented by: [id number] Imaging Data Attestation: I personally reviewed and interpreted this imaging study as follows: Radiologist's Impression: Radiology results as stated below per my review and the radiologist's interpretation: XR chest 1V portable HISTORY: 62 years-old Male fever acute fever COMPARISON: None available TECHNIQUE: Portable AP view of the chest FINDINGS: Cardiomediastinal and hilar silhouettes are within normal limits. Mild left hemidiaphragmatic elevation. Minimal subsegmental left basilar atelectasis. There is no pneumothorax, pleural effusion, focal airspace consolidation or overt pulmonary edema. Degenerative changes of the shoulders and spine. IMPRESSION: Mild left hemidiaphragmatic elevation without acute process. The above report was generated using voice recognition software. It may contain grammatical, syntax or spelling errors. Electronically signed by: Obi Rdz M.D. 09/05/2018 10:18 AM Blood Pressure Blood Pressure Findings: Normal blood pressure Discharge Plan Visit Data *Final* Discharge Date/Time: 09/05/18 13:16 Chief Complaint: Abnormal Labs/Diagnostic Testing Stated Complaint: INFECTION IN BLOOD, NEEDS IV MEDS ED Provider: Garcia Peters Discharge Problem: MRSA bacteremia Patient Disposition: Admitted As Inpatient Discharge Instructions Interventions: ED Discharge Assessment Last Done: 09/05/18 13:16 The scribe's documentation has been prepared under my direction and personally reviewed by me in its entirety. I confirm that the note above accurately reflects all work, treatment, procedures, and medical decision making performed by me.
--- NOTE | 2018-09-05 17:36 | Ultrasound Report ---
US venous doppler UE LT CLINICAL HISTORY: 62 years-old Male presenting with r/o thrombosis. TECHNIQUE: Real-time grayscale and color and spectral Doppler ultrasound imaging of the veins of the left upper extremity was performed. Compression and augmentation were also utilized. COMPARISON: None. FINDINGS: LEFT: Internal jugular vein: Patent. Subclavian vein: Nonocclusive filling defect consistent with thrombus. Axillary vein: Slow flow noted in the axillary vein with minimal thrombus distally. Brachial vein: Patent. Basilic vein (superficial): Patent. Cephalic vein (superficial): Thrombus extending from the subclavian vein in the cephalic vein. Radial vein: Patent. Ulnar vein: Patent. Other: None. IMPRESSION: Nonocclusive deep venous thrombosis in the left subclavian vein and left axillary vein with extension into the left cephalic vein. The report will be called/faxed according to standard departmental protocol for a critical finding. Electronically signed by: Dmitriy Doll M.D. 09/05/2018 5:35 PM
[2018-09-05] MEDS: NYSTATIN SUSP 500,000 U/5 ML UDC PO SCH ×2 (17:38→21:45)
[2018-09-05] MEDS ORDERED: ACETAMINOPHEN 325 MG TAB PO STA (19:43)
[2018-09-05] MEDS ORDERED: SODIUM CHLORIDE 0.9% 1000ML 1,000 ML IV ONE (20:00)
[2018-09-05] MEDS ORDERED: KETOROLAC TROMETHAMINE 15 MG/ML VIAL IV ONE ×2 (20:17→23:09)
[2018-09-05] MEDS ORDERED: POTASSIUM CHLORIDE 10 MEQ TABCR PO STA (21:09)
--- NOTE | 2018-09-05 21:33 | Consultation Report ---
DATE OF CONSULTATION: 09/05/2018 SURGICAL CONSULTATION REASON FOR CONSULTATION: Septic arthritis of the left sternoclavicular joint. HISTORY OF PRESENT ILLNESS: This is a very pleasant 62-year-old male with a relatively unremarkable past medical history who we are asked to see in the hospital due to a septic arthritis of the left sternoclavicular joint. I had a lengthy discussion with the patient and his in room 250 at [facility]. I saw the patient at approximately 3:00 p.m. today. The patient says that he developed some shoulder pain approximately 2 weeks ago. He says that the pain was unprecipitated by any trauma or awkward movements. He did not immediately seek medical attention, but he said that the pain got progressively worse, so approximately one and a half weeks ago he saw a physician elder assistant at his primary care office where the patient was given steroids as well as Baclofen. He says that this did not completely alleviate his symptoms, so he went into the Emergency Department on 08/28 where he said that he was merely given some stronger pain medications. He said that this did alleviate the pain somewhat; however, the patient again saw his primary care physician who maintained the patient on pain medications. It should be noted that there is no concern for infection during his initial visit, so he was not placed on antibiotics. Approximately 2 days ago, the patient developed some shakes, chills along with a fever that he reported was 103 degrees, so he again saw by his primary care physician's office. The patient did have blood cultures drawn at an outpatient [facility] facility where he grew out methicillin-resistant Staph aureus and he was therefore referred to [facility] for admission, IV antibiotics and further care. The patient has had a chest x-ray taken that showed no active disease in the chest. He had a cervical spine MRI that did not show any evidence of abscess and was otherwise unremarkable. He had a CT scan of his neck as well as his chest that raised a concern for septic arthritis of the left sternoclavicular joint and myositis of the left pectoralis muscle as well as myositis of the left sternoclavicular muscles. There was a concern that he may be developing an intramuscular abscess and he was also noted to have a left subclavian vein thrombosis. Inflammatory findings were noted to extend into the superior mediastinum. The patient did have labs drawn where white blood cell count was 13.8, hemoglobin and hematocrit were 11.6 and 34.0, his platelet count was within the normal range. Sodium was slightly low at 135. BUN, creatinine, and potassium were noted to be within normal range. It should be noted that he did have labs drawn on 08/28 where his white blood cell count was noted to be 7.4 that day and his hemoglobin was noted to be 13.3. Also of note on today's blood work, he had a slight elevation of his alkaline phosphatase at 126. The patient has since been admitted to the hospital, he has been placed on broad spectrum antibiotics in the form of daptomycin and ceftaroline for MRSA coverage. We have been asked to see the patient in consultation. I questioned the patient at length in his room, and again, he said he developed some shoulder pain that is worse with movement approximately 2 weeks ago that has been getting worse as described above. He did not note any precipitating event such as falls or trauma. He has not had any cuts, abrasions, scrapes, insect/tick bites or any injury otherwise to the area in question. He denies any illicit drug use. I questioned the patient on whether he had any recent medical procedures and he said, during the last week of July of this year, he did undergo some dental work where he had some cavities filled, but otherwise has not had any other medical problems. Concerning other issues, he has not had any recent falls or head injuries. He denies any visual changes or tinnitus. He does note a slight sore throat with some dysphagia. He does note some pain on the left side of his neck. He does note some pain at the left anterior portion of his chest wall that extends into his shoulder, but no substernal chest pain is noted. He is not short of breath. As noted above, he did have fever, shakes and chills and his fever was as high as 103. He denies any abdominal pain, but earlier in the course of this process, he did have some nausea, vomiting. He denies any diarrhea, but does report constipation. He does note some slight dysuria. He has no history of DVT or PE. He denies anxiety or depression. He does suffer from a seizure disorder diagnosed in his childhood, but said that he has not had any noted seizures in quite some time. At the time of my exam, he was resting comfortably in bed, only having pain in his left shoulder with movement. In addition to what is noted above, I did question the patient of any recent travel history, and he has not had any recent travel outside of the [facility] and he has not stayed in any hotels recently. PAST MEDICAL HISTORY: Includes the followin. Hypothyroidism. 2. History of seizure disorder as noted above. PAST SURGICAL HISTORY: Includes only dental work. ALLERGIES: He has no known medication allergies. CURRENT MEDICATIONS: Include: 1. Intravenous sodium chloride. 2. Intravenous daptomycin. 3. Intravenous ceftaroline. 4. Colace 100 mg twice daily. 5. Levothyroxine 50 mcg daily. 6. Trazodone 50 mg at bedtime. SOCIAL HISTORY: He does not smoke cigarettes. He denies illicit drug use. FAMILY HISTORY: The patient says that no health problems run in his blood relatives. He did feel it is noteworthy to mention that his several years ago did suffer from an MRSA infection of her spine, which required months of antibiotics. REVIEW OF SYSTEMS: As noted above. PHYSICAL EXAMINATION: VITAL SIGNS: The patient's blood pressure is 154/88, pulse is 118 and regular, respirations are 20 and unlabored. He has a fever of 37.8, pulse ox of 99% on room air. GENERAL: He is alert, he is oriented x3, in no acute distress. HEENT: Head is atraumatic, normocephalic. Eyes: Pupils equal, round, reactive to light and accommodation. Extraocular motions are intact. Ears: Auditory acuity is grossly intact. Nose: Nasal patency is intact. Sinuses are nontender. Mouth: Has dry mucous membranes. He did have some white film/plaque on his tongue that appeared to be consistent with oral thrush. NECK: Without tracheal shift. He did have some swelling on the left lateral aspect of his neck on the sternocleidomastoid muscle that was tender to palpation. CARDIOVASCULAR: Regular rate and rhythm and I do not appreciate any murmurs. LUNGS: The patient's lungs were clear to auscultation without rales, rhonchi, wheezing or use of accessory muscles. CHEST: His chest wall was examined and there was some notable swelling over the left clavicle from the area of the manubrium of the sternum over to the lateral aspect encompassing his pectoralis major muscle. I could not feel any discrete abscess or fluid collection under the skin and the area did have some erythema and warmth associated with it. ABDOMEN: Soft, nontender, nondistended, without pain with palpation. EXTREMITIES: Revealed no cyanosis, clubbing, or edema. He had palpable radial and DP pulses bilaterally. The patient had no gross orthopedic abnormalities. He did have marked pain with movement of his left arm and the pain was located in the shoulder joint with nearly all range of motion of his shoulder. NEUROLOGIC: Revealed cranial nerves II through XII are grossly intact. He can move all 4 extremities without noted focal deficits. DIAGNOSTIC DATA: As noted above. IMPRESSION: A 62-year-old male with apparent septic arthritis of the left sternoclavicular joint. I have discussed the case with primary care physician who is Dr. Chong of the [facility] the [facility] as well as Dr. Zafar of infectious disease. I have also discussed the case in detail with Dr. Dye who has reviewed the scans. Our current plan is to make the patient n.p.o. after midnight and Dr. Dye will take him to the operating room for surgical debridement/washout of the left sternoclavicular joint and other tissue involved. I discussed with the patient that we are unsure how extensive this process is until Dr. Dye has a chance to actually view the affected area in the operating room. It is unsure of how long the patient may require antibiotics until the completion of tomorrow's surgical procedure as well as monitoring his clinical course as it unfolds. Dr. Dye will meet with the patient later during this admission, but prior to his surgical procedure to further examine the patient and discuss the possible ramifications of his planned operative procedure. As noted again, his operative procedure is planned tentatively for 09/06, which is tomorrow in the morning. For the present time, I believe I have answered all the patient's questions to his satisfaction.
[2018-09-05] MEDS: TRAZODONE HCL 50 MG TAB PO SCH (21:45)
[2018-09-05] MEDS: LACTATED RINGER'S 1,000 ML IV SCH (22:43)
[2018-09-06] MEDS: CEFTAROLINE FOSAMIL ACETATE 600 MG in SODIUM CHLORIDE 0.9% 250 ML IV SCH ×3 (00:20→20:35)
[2018-09-06 05:42] LABS: Hematocrit (blood only) 29.5 % (42-52); Hemoglobin 10.1 g/dL (14.0-18.0); Mean Corpuscular Hgb Conc 34.2 g/dL (32-36); Mean Corpuscular Volume 90.5 fL (80-100); Mean Platelet Volume 8.7 fL (7.4-10.4); Platelet Count 219 K/uL (130-400); RDW Standard Deviation 46.6 fL (36.4-46.3); Red Blood Count 3.26 M/uL (4.7-6.1); White Blood Count 11.95 K/uL (4.8-10.8)
[2018-09-06] MEDS: LEVOTHYROXINE SODIUM 50 MCG TABLET PO SCH (05:50)
[2018-09-06 05:51] LABS: Partial Thromboplastin Time 27.8 Seconds (21.0-31.0)
[2018-09-06] MEDS: LACTATED RINGER'S 1,000 ML IV SCH (05:53)
[2018-09-06 06:10] LABS: BUN Creatinine Ratio 17.8 (10-20); Creatinine Clr Calc Pharmacy 81.9 ml/min; Est GFR (African American) 95.5; Est GFR (Non-African American) 82.4; Potassium 4.1 mmol/L (3.5-5.1)
[2018-09-06 06:22] LABS: Basophils # (auto) 0.01 K/uL (0-0.2); Basophils % (auto) 0.1 %; Eosinophils # (auto) 0.18 K/uL (0-0.5); Eosinophils % (auto) 1.5 %; Immature Granulocytes # (auto) 0.04 K/uL (0.00-0.02); Immature Granulocytes % (auto) 0.3 %; Lymphocytes # (auto) 0.61 K/uL (1.2-3.4); Lymphocytes % (auto) 5.1 %; Monocytes # (auto) 1.39 K/uL (0.11-0.59); Monocytes % (auto) 11.6 %; Neutrophils # (auto) 9.72 K/uL (1.4-6.5); Neutrophils % (auto) 81.4 %
[2018-09-06] MEDS ORDERED: PROPOFOL IV EMULSION 10 MG/ML 20 ML VIAL IV ONE (06:54)
[2018-09-06] MEDS ORDERED: MIDAZOLAM HCL 1 MG/ML 2ML VIAL ONE (06:54)
[2018-09-06] MEDS ORDERED: ROCURONIUM BROMIDE 10 MG/ML 5 ML VIAL ONE (06:54)
[2018-09-06] MEDS ORDERED: ONDANSETRON INJ 2 MG/ML 2 ML VIAL ONE (06:54)
[2018-09-06] MEDS ORDERED: DEXAMETHASONE SOD INJ 4 MG/ML VIAL ONE (06:54)
[2018-09-06] MEDS ORDERED: LIDOCAINE HCL 2% 2 ML VIAL/AMP(20MG/ML) INFIL ONE (06:54)
[2018-09-06] MEDS ORDERED: fentaNYL citrate 100 MCG/2 ML VIAL ONE ×2 (06:55→08:17)
[2018-09-06] MEDS ORDERED: THROMBIN FOR SOLN 20000 UNIT KIT ONE (07:01)
[2018-09-06] MEDS ORDERED: GELATIN SPONGE 12-7MM ONE (07:01)
--- NOTE | 2018-09-06 07:04 | History & Physical Bridge Note ---
Date of Service September 06, 2018 History & Physical Bridge Note I have examined the patient, reviewed the History & Physical and in the interval since the performance of the History & Physical I have noted the following changes of clinical significance: no changes noted
[2018-09-06] MEDS ORDERED: VANCOMYCIN HCL 1000MG/20ML VIAL ONE ×2 (07:09→07:35)
[2018-09-06] MEDS ORDERED: GENTAMICIN SULFATE 40 MG/ML 2 ML VIAL ONE ×2 (07:09→07:34)
--- NOTE | 2018-09-06 07:12 | Surgery Progress Note ---
Date of Service September 06, 2018 Assessment & Plan (1) Effusion of sternoclavicular joint: This is a 62-year-old nondiabetic who really is very healthy. He developed left upper chest pain and neck pain is been found to have septic arthritis in his left sternoclavicular joint. He feels better today. His temperature is down. He is very tender over his sternoclavicular joint and no further testing needs to be done. We have taken to the operating room today and aggressively debride this left sternoclavicular joint and implant antibiotic beads. He also has thrombus in his left subclavian vein however, this is going to be a bloody operation due to the marrow. We will have to hold antic oagulation for probably 24 hours. I had a long talk with the patient his and discussed the severity and magnitude of this condition and the operation. They understand. They also understand there may be further operations. There may require muscle flaps and he may have left upper extremity dysfunction. We will proceed this morning. For details of the surgical consultation please refer to Mr. Garth Garsia's note from 09/05/2018. Present on Admission?: Yes Results & Data Vital Signs (Past 12 Hours) Vital Signs Temp Pulse Pulse Resp BP Pulse Ox 09/06/18 06:08 36.9 C 09/06/18 03:49 37.3 C 87 18 110/56 L 97 09/06/18 00:23 37.3 C 09/06/18 00:00 89 09/05/18 23:31 37.7 C H 95 H 16 111/71 94 09/05/18 22:33 120 H 09/05/18 21:01 38.9 C H 09/05/18 20:17 39.4 C H 09/05/18 19:38 39.4 C H 116 H 18 110/75 94
--- NOTE | 2018-09-06 07:29 | Anesthesiology Consultation ---
Date of Service September 06, 2018 Assessment & Plan (1) Encounter for pre-operative examination: Chart Review Chart Review: Acceptable Risk for Surgery History Surgery Operation Date: 09/06/18 07:30 Proposed Procedures p Left Sternoclavicular Joint Debridement with Implanting Antibiotic Beads - London Dye MD, FACS Height/Weight Height: 5 ft 10 in Weight: 80.5 kg Allergies Allergy/AdvReac Type Severity Reaction Status Date / Time No Known Allergies Allergy Unverified 09/05/18 11:22 Medications Home Medications Medication Instructions Recorded Confirmed Last Taken levothyroxine 50 mcg PO QAM 08/28/18 09/05/18 09/05/18 oxycodone-acetaminophen [Percocet] 1 tab PO Q6H PRN #14 tab 08/28/18 09/05/18 09/05/18 trazodone 50 mg PO HS 08/28/18 09/05/18 09/04/18 cyclobenzaprine 10 mg PO BID 09/05/18 09/05/18 09/05/18 Active Medications Generic Name Dose Route Start Last Admin Trade Name Freq PRN Reason Stop Dose Admin Acetaminophen 650 mg 09/05/18 13:46 09/05/18 23:36 Tylenol PO 10/05/18 13:45 650 mg Q4H PRN Administration Pain or Fever Docusate Sodium 100 mg 09/05/18 14:00 09/05/18 21:45 Colace PO 10/05/18 13:59 100 mg BID MILADIS Administration Ceftaroline Fosamil 600 mg/ 270 mls @ 270 mls/hr 09/05/18 23:30 09/06/18 01:36 Sodium Chloride IV 09/19/18 23:29 Infused Q12 MILADIS Infusion Lactated Ringer's 1,000 mls @ 150 mls/hr 09/05/18 22:00 09/06/18 05:53 Lr IV 10/05/18 21:59 150 mls/hr .Q6H40M MILADIS Administration Ioversol 94 ml 09/05/18 13:34 09/05/18 13:34 Optiray 320 100ml IV 09/09/18 13:33 94 ml ONCE PRN Administration Interaction Checking Levothyroxine Sodium 50 mcg 09/06/18 06:30 09/06/18 05:50 Synthroid PO 10/06/18 06:29 50 mcg DAILYBB MILADIS Administration Morphine Sulfate 1 mg 09/05/18 12:46 09/05/18 18:43 Morphine Sulfate IV 09/19/18 12:45 1 mg Q4 PRN Administration Pain Nystatin 5 ml 09/05/18 17:00 09/05/18 21:45 Mycostatin PO 09/15/18 16:59 5 ml QID MILADIS Administration Trazodone HCl 50 mg 09/05/18 21:00 09/05/18 21:45 Desyrel PO 10/05/18 20:59 50 mg HS MILADIS Administration NPO Date Last Intake of Fluids: 09/05/18 Date Last Intake of Solids: 09/05/18 Time Last Intake of Solids: 08:00 Last Intake of Solids Comment: Banana Past Medical History Medical History Seizure disorder (Chronic) Last seizure in high school. Off meds since Hypothyroidism (Chronic) Hypothyroidism Exercise / Class Metabolic Activity II 4-5 Yardwork/Stairs/Walk up hill Past Family History Family History Other COPD (chronic obstructive pulmonary disease) Heart disease Past Surgical History Surgical History Hx of tonsillectomy (Chronic) No significant past surgical history Social History Smoking Status: Never smoker Do You Dip or Chew Tobacco: No Hx Alcohol Use: No Alcohol Intake Frequency Comment: not for last 2 weeks Hx Substance Use: No substance use type: does not use Physical Exam Vital Signs Last Vital Signs Temp 36.9 C 09/06/18 06:08 Pulse 100 H 09/06/18 07:21 Resp 18 09/06/18 03:49 BP 110/56 L 09/06/18 03:49 Pulse Ox 97 09/06/18 03:49 Testing Laboratory Results 09/06/18 05:23 09/06/18 05:23 APTT 27.8 Seconds (21.0-31.0) 09/06/18 05:23 Urine Color Yellow 09/05/18 11:50 Urine Appearance Clear (Clear) 09/05/18 11:50 Urine pH 6.5 (4.5-7.5) 09/05/18 11:50 Ur Specific [place] 1.011 (1.000-1.030) 09/05/18 11:50 Urine Protein Negative (Negative) 09/05/18 11:50 Urine Glucose (UA) Negative (Negative) 09/05/18 11:50 Urine Ketones Negative (Negative) 09/05/18 11:50 Urine Nitrite Negative (Negative) 09/05/18 11:50 Ur Leukocyte Esterase Negative (Negative) 09/05/18 11:50 Urine WBC (Auto) 1-5 /hpf (0-5) 09/05/18 11:50 Urine RBC (Auto) 0-4 /hpf (0-4) 09/05/18 11:50 U Hyaline Cast (Auto) 1-5 /lpf (0-5) 09/05/18 11:50 U Epithel Cells (Auto) 5-10 /lpf (0-5) H 09/05/18 11:50 Urine Bacteria (Auto) Negative (Negative) 09/05/18 11:50 Blood Type O Positive 09/06/18 05:23 Antibody Screen NEGATIVE 09/06/18 05:23 09/05/18 10:12 Aerobic Blood Culture - Final Blood Anaerobic Blood Culture - Preliminary Gram positive cocci clusters 09/05/18 10:12 Aerobic Blood Culture - Final Blood Anaerobic Blood Culture - Preliminary Gram positive cocci clusters Electrocardiogram Date: 09/05/18 Findings: + ST @ (110 with PAC's) Chest X-Ray Date: 09/05/18 Findings: + NAD
[2018-09-06] MEDS ORDERED: ATROPINE SULFATE 0.1 MG/ML 10ML SYR IV PRN (07:30)
[2018-09-06] MEDS ORDERED: KETOROLAC 30 MG/ML VIAL IV PRN (07:30)
[2018-09-06] MEDS ORDERED: ONDANSETRON INJ 2 MG/ML 2 ML VIAL IV PRN (07:30)
[2018-09-06] MEDS ORDERED: LABETALOL HCL IV 5 MG/ML 20ML IV PRN (07:30)
[2018-09-06] MEDS ORDERED: CLINDAMYCIN PHOS 300 MG/2 ML VIAL ONE ×2 (07:53)
[2018-09-06] MEDS ORDERED: NEOSTIGMINE METHYLSULFATE 5 MG/5 ML SYR ONE (08:02)
[2018-09-06] MEDS ORDERED: GLYCOPYRROLATE 0.2 MG/ML VIAL ONE (08:02)
[2018-09-06] MEDS ORDERED: BUPIVACAINE/EPINEPHRINE 0.5% MPF 1:200,000 30 ML VIAL ONE (08:06)
[2018-09-06] MEDS ORDERED: BUPIVACAINE LIPOSOME 1.3% 266 MG/20 ML VIAL ONE (08:07)
[2018-09-06] MEDS ORDERED: SODIUM CHLORIDE 0.9% PF 50 ML VIAL ONE (08:07)
[2018-09-06] MEDS ORDERED: BUPIVACAINE 0.5 % 5 MG/1 ML MPF 30ML VIAL ONE (08:10)
[2018-09-06] MEDS ORDERED: DAPTOmycin 500 MG VIAL IV SCH (09:00)
--- NOTE | 2018-09-06 09:31 | Post Operative Brief Note ---
Immediate Post Op Note v1 Date of Surgery September 06, 2018 Pre & Post Diagnosis Operation Date: 09/06/18 07:30 Pre-Op Diagnosis: Septic arthritis of the left sternoclavicular joint Post-Op Diagnosis: Septic arthritis of the left sternoclavicular joint Procedure Operation Date: 09/06/18 07:30 Actual Procedures p Left Sternoclavicular Joint Debridement with Implanting Antibiotic Beads(Left) - London Dye MD, FACS Surgeon London Dye MD, FACS Animal Nurse Gilles Ortega Estimated Blood Loss 100 Findings Consistent with Post-Op Diagnosis
[2018-09-06] MEDS ORDERED: HYDROmorphone INJ 0.5 MG/0.5 ML SYR ONE ×2 (10:02→10:12)
[2018-09-06] MEDS: HYDROmorphone INJ 1 MG/ML SYRINGE IV PRN ×4 (10:03→10:18)
--- NOTE | 2018-09-06 10:32 | Anesthesiology Progress Note ---
Date of Service September 06, 2018 Anesthesia Post Procedure Vital Signs Vital Signs: Temp Pulse Pulse Resp BP Pulse Ox 09/06/18 10:20 81 12 132/83 98 09/06/18 10:10 90 12 130/83 100 09/06/18 10:00 98 H 14 129/83 100 09/06/18 09:50 100 H 15 126/85 100 09/06/18 09:41 36.7 C 88 18 119/78 99 09/06/18 07:21 100 H 09/06/18 06:08 36.9 C 09/06/18 03:49 37.3 C 87 18 110/56 L 97 09/06/18 00:23 37.3 C 09/06/18 00:00 89 09/05/18 23:31 37.7 C H 95 H 16 111/71 94 09/05/18 22:33 120 H 09/05/18 21:01 38.9 C H 09/05/18 20:17 39.4 C H 09/05/18 19:38 39.4 C H 116 H 18 110/75 94 09/05/18 13:47 37.8 C H 118 H 20 154/88 H 99 09/05/18 11:37 98 H 16 157/96 H 97 Pain Intensity Left Shoulder: Pain Intensity: 5 Transfer of Care Handoff Completed per policy Notes Mental Status: alert / awake / arousable Patient Amnestic to Procedure: Yes Nausea / Vomiting: adequately controlled Pain: adequately controlled Airway Patency, RR, SpO2: stable & adequate BP & HR: stable & adequate Hydration State: stable & adequate Anesthetic Complications: no major complications apparent
[2018-09-06] MEDS ORDERED: DAPTOmycin 450 MG in SYRINGE 0 ML IV SCH (11:00)
[2018-09-06] MEDS: NYSTATIN SUSP 500,000 U/5 ML UDC PO SCH ×4 (14:16→20:34)
[2018-09-06] MEDS: DOCUSATE SODIUM 100 MG CAP PO SCH ×2 (15:04→20:34)
--- NOTE | 2018-09-06 17:38 | Hospitalist Progress Note ---
Date of Service September 06, 2018 Assessment & Plan (1) MRSA bacteremia: ` Outpatient blood culture 09/04/2018: MRSA bacteremia Source of infection, left sternoclavicular joint infection/sepsis with extension of infection -anterior chest wall -Repeat blood cultures ordered -ID consulted appreciate input recommends daptomycin and Teflaro-ordered Appreciate input from thoracic surgery, status post surgery of left sternoclavicular joint area today Patient recovering well postop (2) Cellulitis of chest wall: (3) Septic joint of left shoulder region: Pt presented with onset of left shoulder pain 2 weeks ago. Patient has had significant progression of left shoulder pain extending to left neck and left chest. Had several outpatient visits in ER visit for left shoulder pain. Patient had MRI C-spine on 09/02/2018: 1. No fractures or subluxation within the cervical spine. 2. [id number] degenerative disc disease and mild facet osteoarthritis throughout the cervical spine as described above. This results in multilevel bilateral neural foraminal narrowing most pronounced at the C4-C5 level. 3. No significant central canal narrowing. 4. Normal cervical spinal cord. 09/02/2018 left shoulder x-ray: Impression: No fracture. Alignment is WNL. Mild acromioclavicular osteoarthritis. Soft tissues are unremarkable. Patient had reported fevers outpatient. 09/04/2018 patient had outpatient labs revealing white count 15,000, blood cultures positive for MRSA and patient was referred to the ER today. In ER patient initially afebrile, peak: 110, RR: 20, BP: 136/79, 97% on room air. WBC: 13. POC lactic acid: 0.8 -In ER patient was started on daptomycin, Zosyn. Received [address] CHEST: 1. Findings highly suspicious for septic arthritis of the left sternoclavicular joint with secondary severe myositis/pyomyositis involving the left pectoralis muscle complex, left sternoclavicular muscle, and left subclavius muscle. However, no CT evidence of osteomyelitis. The presence of developing intramuscular abscesses in the left pectoralis muscle complex is suspected as well as phlegmon in the anterior superior mediastinum or immediately superficial to the anterior superior mediastinum. 2. Either severe stenosis or less likely thrombosis of the left subclavian vein. A dedicated left upper extremity Doppler examination with special attention to the left subclavian and left axillary veins it is recommended for further assessment. 3. Minimal left basilar atelectasis. 4. Small pericardial effusion. CT SOFT TISSUE NECK: Extensive infectious process within the left lower neck and upper chest. The findings raise the possibility of septic arthritis of the left sternoclavicular joint with associated myositis/pyomyositis of the left pectoralis and sternoclavicular muscles with suspected developing intramuscular abscesses. Left supraclavicular abscess results in moderate narrowing of the distal left internal jugular vein. Possible thrombus within the left axillary vein which can be assessed with left upper extremity venous Doppler to exclude septic thrombophlebitis. Inflammation extends into the superior mediastinum and close clinical follow-up is recommended given the potential for mediastinitis. Trace left pleural effusion. -Repeat blood cultures pending -ID consulted and recommends daptomycin and Teflaro -CT Surgery consulted -status post surgery today - (4) Hypothyroidism: -On levothyroxine DVT Prophylaxis: SCDs Full Code as per discussion with pt Follows with Dr Israel Tee for routine care (5) Deep venous thrombosis of left upper extremity: Ultrasound of left upper extremity IMPRESSION: Nonocclusive deep venous thrombosis in the left subclavian vein and left axillary vein with extension into the left cephalic vein. Secondary to mechanical compression due to extension of flexion inflammation and subscapularis muscle Due to very low risk of propagation of upper extremity thrombosis Given recent anterior chest wall surgery will hold off IV heparin/anticoagulation (6) Dysphagia: Injury to anterior chest wall infection, Symptom improved after surgical evacuation of abscess Diet advanced to regular tolerating well Subjective Status post left sternoclavicular joint surgery by Dr Flood this morning Patient seen postop Feels much better since yesterday, improved pain discomfort on left anterior chest Still has significant stiffness pain on left side of neck Has been afebrile Physical Exam Constitutional: WD/WN, vitals as above no acute distress ENMT: Mallampati Class: III Neck: trachea midline, no thyromegaly normal visual inspection; neck nontender Respiratory: normal respiratory effort, lungs clear to auscultation normal respiratory effort and normal percussion; does not use accessory muscles Auscultation: lungs clear to auscultation bilaterally Cardiovascular: Rate/Rhythm: regular rate and regular rhythm Heart Sounds: normal S1 and normal S2; no gallop, no murmur and no cardiac rub Vessels: normal peripheral pulses; no JVD Gastrointestinal (Abdomen): normal bowel sounds, soft, nontender, no hepatosplenomegaly Musculoskeletal: no cyanosis or clubbing, extremities motor strength 5/5 Spine: no cervical spinal tenderness Status post left anterior chest wall/left SC joint surgery bandage present Skin: normal turgor; no rashes Neurologic: patellar DTR's 2+ bilat, sensation intact no focal motor deficits Psychiatric: A+Ox3, euthymic affect Orientation: cooperative Results & Data Vital Signs (Past 12 Hours) Vital Signs Temp Pulse Pulse Pulse Pulse Resp BP 09/06/18 16:00 36.6 C 88 19 112/72 09/06/18 13:26 88 16 115/75 09/06/18 12:18 36.6 C 83 16 130/80 09/06/18 11:43 37.2 C 89 16 116/76 09/06/18 11:01 37.2 C 87 16 128/78 09/06/18 10:40 77 14 126/84 09/06/18 10:30 37.1 C 81 14 134/83 09/06/18 10:20 81 12 132/83 09/06/18 10:10 90 12 130/83 09/06/18 10:00 98 H 14 129/83 09/06/18 09:50 100 H 15 126/85 09/06/18 09:41 36.7 C 88 18 119/78 09/06/18 07:21 100 H 09/06/18 06:08 36.9 C Pulse Ox 09/06/18 16:00 95 09/06/18 13:26 97 09/06/18 12:18 100 09/06/18 11:43 99 09/06/18 11:01 100 09/06/18 10:40 99 09/06/18 10:30 99 09/06/18 10:20 98 09/06/18 10:10 100 09/06/18 10:00 100 09/06/18 09:50 100 09/06/18 09:41 99 09/06/18 07:21 09/06/18 06:08
[2018-09-06] MEDS ORDERED: SOD PHOSPHATE/SOD BIPHOSPHATE ENEMA 132 ML BTL PR STA (18:31)
[2018-09-06] MEDS ORDERED: SOD PHOSPHATE/SOD BIPHOSPHATE ENEMA 132 ML BTL PR ONE (18:33)
[2018-09-06] MEDS: TRAZODONE HCL 50 MG TAB PO SCH (21:13)
[2018-09-06] MEDS: OXYCODONE/ACETAMINOPHEN 5mg/325mg TAB PO PRN (21:17)
--- NOTE | 2018-09-06 23:14 | Operative Report ---
DATE OF OPERATION: 09/06/2018 PREOPERATIVE DIAGNOSIS: Septic left sternoclavicular joint. POSTOPERATIVE DIAGNOSIS: Septic left sternoclavicular joint. PROCEDURES: 1. Radical debridement of medial clavicle and sternoclavicular head, part of the manubrium, part proximal of the medial first rib and sternum as well as drainage of this abscess including drainage of abscess from the pectoralis muscle. 2. Implantation of calcium sulfate beads impregnated with vancomycin and gentamicin. SURGEON: London Dye MD [employer] REPRESENTATIVES: Sarah Ortega_ ANESTHESIA: General anesthesia, endotracheal intubation. INDICATION OF PROCEDURE AND FINDINGS: This patient is a 62-year-old otherwise relatively healthy man who has been having pain in his left sternoclavicular area for several days. He grew out methicillin-resistant Staph aureus in blood cultures which were drawn a few days ago. He was admitted and placed on methicillin-resistant Staph aureus antibiotics last night. He was having multiple problems including difficulty swallowing with problems with his neck and his shoulder; however, this is improved today with antibiotics. He has an abscess on CT and the sternoclavicular joint is obviously involved. His shoulder does not appear involved. He feels better; however. His dysphagia improved. His other pain improved. He is still markedly erythematous. On the morning of 09/06/2018, the patient was taken to the operating room and resected this joint and bone on either side. I drained a large amount of pus which was cultured. The pus extended into the pectoralis muscle and this was drained. We irrigated this out copiously. Bleeding was well controlled. We implanted antibiotic beads to completely fill the space and close it primarily. DESCRIPTION OF PROCEDURE: The patient was brought in to operating room and laid in supine position. General anesthesia induced and endotracheal intubation was performed. After appropriate timeout had been called and prophylactic antibiotics given, incision was made in a curvilinear fashion over the upper sternum going over the sternoclavicular joint and clavicle. It was about 17 cm in length. Cautery was used to go down through the subcutaneous tissues down to the bone of the clavicle which was followed medially. Using a saw, I cut through this medially and then with a bone hook, I pulled up and using a periosteal elevator, I removed this all the way back to the sternal joint and there was pus coming out of this joint as well as the surrounding tissues, which was cultured. This joint was removed. I then removed the periosteum from the more lateral clavicle and took at least half if not two-thirds of the clavicle medially. The bone appeared to be healthy. I then debrided a part of the manubrium as well as part of the upper sternum and even part of the first rib; however, we got down to healthy bone. I stopped here. I also followed an abscess above the clavicle a bit past which was under the sternocleidomastoid muscle, but it was not a very big collection superiorly; however, there was a collection of pus which was fairly significant. I went down into the more lateral pectoralis muscle. We drained this completely. Bleeding was controlled with Aquamantys and Bovie electrocautery. I then used the pulse hat and cap parts cutter hand and lavage hat and cap parts cutter hand to completely irrigate out the entire area. We then got meticulous hemostasis and I sprayed thrombin on the bone marrow. After the bleeding had been completely controlled, we held pressure on this while beads were made. A 20 mL of Stimulan from [employer] pharmaceutical grade calcium sulfate was mixed with 2 grams of vancomycin and 960 mg of gentamicin. When this formed a putty-like consistency, it was placed on a mold. When the beads had set, the mold was bent and the beads removed. The beads were used to pack the pectoralis space which had been created by draining the abscess. We then placed it over the bone edges and completely filled the wound with it. A #1 Vicryl was used to reapproximate the muscle layers and deeper layers. I then used 2-0 Vicryl in running continuous fashion to close the subcutaneous tissues and skin clips were used to approximate the wound edges. We lost about 100 mL of blood. The patient tolerated it well hemodynamically. He was transported back to the postanesthesia care unit in a stable condition. I attest to the content of the Intraoperative Record and any orders documented therein. Any exceptions are noted below. HILARY
[2018-09-07] MEDS: OXYCODONE/ACETAMINOPHEN 5mg/325mg TAB PO PRN ×2 (03:20→21:29)
[2018-09-07] MEDS: LEVOTHYROXINE SODIUM 50 MCG TABLET PO SCH (05:28)
[2018-09-07 07:23] LABS: Creatinine Clr Calc Pharmacy 81.1 ml/min; Est GFR (African American) 94.4; Est GFR (Non-African American) 81.4
[2018-09-07] MEDS: DOCUSATE SODIUM 100 MG CAP PO SCH ×2 (08:15→21:24)
[2018-09-07] MEDS: NYSTATIN SUSP 500,000 U/5 ML UDC PO SCH ×4 (08:15→21:25)
[2018-09-07] MEDS: CEFTAROLINE FOSAMIL ACETATE 600 MG in SODIUM CHLORIDE 0.9% 250 ML IV SCH ×2 (09:12→22:00)
--- NOTE | 2018-09-07 11:46 | Progress Note ---
DATE: 09/07/2018 The patient was seen today. He is now 1 day status post radical debridement of the left sternoclavicular joint, clavicle with part of the manubrium and sternum. He looks better to me. He is not complaining of any dysphagia. I do have a couple of concerns. One is the fact that the patient has swelling in his left lower arm, which is probably related to his thrombus. This leads us to the point about when he can be anticoagulated. At this point, I think I would start anticoagulation on him. I explained him of the risk, he can have a hematoma; however, I think this is rather low at this point. I am concerned about his arm. At this point, I would start him on a non-Coumadin oral anticoagulant. I do not think he will get into bleeding to the point where he would have to be reversed. My concern would be that he would develop a hematoma which needed to be drained and whether he is on Coumadin or heparin or Lovenox really would not matter. I think starting Xarelto or another drug would be preferable. I did explain this to the patient. He understands. I am quite pleased with his incision. I think he should respond well to this. He was asking about going home.
[2018-09-07] MEDS: APIXABAN 5 MG TABLET PO SCH ×2 (15:33→21:24)
--- NOTE | 2018-09-07 17:59 | Hospitalist Progress Note ---
Date of Service September 07, 2018 Assessment & Plan (1) MRSA bacteremia: ` Outpatient blood culture 09/04/2018: MRSA bacteremia Source of infection, left sternoclavicular joint infection/sepsis with extension of infection -anterior chest wall -Repeat blood cultures on 09/05/2018: MRSA bacteremia Blood culture on 09/06/2018: Gram-positive cocci Repeat blood culture drawn today a.m. 09/08/1999 918 will follow report -ID consulted appreciate input Patient is continued with daptomycin and Teflaro-ordered Appreciate input from thoracic surgery, status post surgery of left sternoclavicular joint Patient recovering well postop (2) Cellulitis of chest wall: Treatment outlined above (3) Septic joint of left shoulder region: Pt presented with onset of left shoulder pain 2 weeks ago. Patient has had significant progression of left shoulder pain extending to left neck and left chest. Had several outpatient visits in ER visit for left shoulder pain. Patient had MRI C-spine on 09/02/2018: 1. No fractures or subluxation within the cervical spine. 2. Abiz-zq-gcyoixzo degenerative disc disease and mild facet osteoarthritis throughout the cervical spine as described above. This results in multilevel bilateral neural foraminal narrowing most pronounced at the C4-C5 level. 3. No significant central canal narrowing. 4. Normal cervical spinal cord. 09/02/2018 left shoulder x-ray: Impression: No fracture. Alignment is WNL. Mild acromioclavicular osteoarthritis. Soft tissues are unremarkable. Patient had reported fevers outpatient. 09/04/2018 patient had outpatient labs revealing white count 15,000, blood cultures positive for MRSA and patient was referred to the ER today. In ER patient initially afebrile, peak: 110, RR: 20, BP: 136/79, 97% on room air. WBC: 13. POC lactic acid: 0.8 Remained afebrile post surgery CT CHEST: 1. Findings highly suspicious for septic arthritis of the left sternoclavicular joint with secondary severe myositis/pyomyositis involving the left pectoralis muscle complex, left sternoclavicular muscle, and left subclavius muscle. However, no CT evidence of osteomyelitis. The presence of developing intramuscular abscesses in the left pectoralis muscle complex is suspected as well as phlegmon in the anterior superior mediastinum or immediately superficial to the anterior superior mediastinum. 2. Either severe stenosis or less likely thrombosis of the left subclavian vein. A dedicated left upper extremity Doppler examination with special attention to the left subclavian and left axillary veins it is recommended for further assessment. 3. Minimal left basilar atelectasis. 4. Small pericardial effusion. CT SOFT TISSUE NECK: Extensive infectious process within the left lower neck and upper chest. The findings raise the possibility of septic arthritis of the left sternoclavicular joint with associated myositis/pyomyositis of the left pectoralis and sternoclavicular muscles with suspected developing intramuscular abscesses. Left supraclavicular abscess results in moderate narrowing of the distal left internal jugular vein. Possible thrombus within the left axillary vein which can be assessed with left upper extremity venous Doppler to exclude septic th rombophlebitis. Inflammation extends into the superior mediastinum and close clinical follow-up is recommended given the potential for mediastinitis. Trace left pleural effusion. Patient underwent surgery for left sternoclavicular joint sepsis by CT surgery postoperative day 1 doing very well postop recovery - (4) Hypothyroidism: -On levothyroxine DVT Prophylaxis: SCDs Full Code as per discussion with pt Follows with Dr Israel Tee for routine care (5) Deep venous thrombosis of left upper extremity: Ultrasound of left upper extremity IMPRESSION: Nonocclusive deep venous thrombosis in the left subclavian vein and left axillary vein with extension into the left cephalic vein. Secondary to mechanical compression due to extension of flexion inflammation and subscapularis muscle Discussed with CT surgery Dr. Inman Patient is started on Eliquis for anticoagulation (6) Dysphagia: Injury to anterior chest wall infection, Symptom resolved after surgery Diet advanced to regular tolerating well We will DC speech evaluation consult CODE STATUS: Full code DVT prophylaxis: Started on Eliquis Disposition: Expected to be discharged home, Patient will need long-term IV anticoagulation for gram-positive /MRSA bacteremia Subjective Doing much better today ambulating No fever or chills Pain on anterior chest wall almost gone still have some neck pain on left side with movement No problem in swallowing tolerating solid diet okay Physical Exam Constitutional: WD/WN, vitals as above no acute distress Eyes: PERRL, conjunctivae normal, anicteric sclerae ENMT: Mallampati Class: III Neck: trachea midline, no thyromegaly normal visual inspection; neck nontender Respiratory: normal respiratory effort, lungs clear to auscultation normal respiratory effort and normal percussion; does not use accessory muscles Auscultation: lungs clear to auscultation bilaterally Cardiovascular: Rate/Rhythm: regular rate and regular rhythm Heart Sounds: normal S1 and normal S2; no gallop, no murmur and no cardiac rub Vessels: normal peripheral pulses; no JVD Gastrointestinal (Abdomen): normal bowel sounds, soft, nontender, no hepatosplenomegaly Musculoskeletal: no cyanosis or clubbing, extremities motor strength 5/5 Spine: no cervical spinal tenderness Skin: normal turgor; no rashes Neurologic: patellar DTR's 2+ bilat, sensation intact no focal motor deficits Psychiatric: A+Ox3, euthymic affect Orientation: cooperative Lymphatic: no cervical or axillary lymphadenopathy no inguinal lymphadenopathy Results & Data Vital Signs (Past 12 Hours) Vital Signs Temp Pulse Resp BP Pulse Ox 09/07/18 15:01 36.7 C 83 16 109/64 98 09/07/18 06:54 37.0 C 79 16 114/71 95
[2018-09-07] MEDS ORDERED: KETOROLAC TROMETHAMINE 15 MG/ML VIAL IV ONE (19:47)
[2018-09-07] MEDS ORDERED: MoRPHine SULFATE 4 MG/ML 1 ML CARP\\VIAL IV PRN (19:53)
[2018-09-07] MEDS: TRAZODONE HCL 50 MG TAB PO SCH (21:26)
[2018-09-08] MEDS: LEVOTHYROXINE SODIUM 50 MCG TABLET PO SCH (05:33)
--- NOTE | 2018-09-08 07:46 | Anesthesiology Progress Note ---
Date of Service September 08, 2018 Anesthesia Post Procedure Vital Signs Vital Signs: Temp Pulse Resp BP Pulse Ox 09/07/18 23:24 36.8 C 76 14 100/62 96 09/07/18 15:01 36.7 C 83 16 109/64 98 Pain Intensity Left Shoulder: Pain Intensity: 5 Notes Mental Status: alert / awake / arousable and participated in evaluation Nausea / Vomiting: adequately controlled Pain: adequately controlled Airway Patency, RR, SpO2: stable & adequate BP & HR: stable & adequate Hydration State: stable & adequate Anesthetic Complications: no major complications apparent and Pt Satisfied with anesthetic care
[2018-09-08 08:07] LABS: Creatinine Clr Calc Pharmacy 71.2 ml/min; Est GFR (African American) 80.6; Est GFR (Non-African American) 69.5
[2018-09-08] MEDS: DOCUSATE SODIUM 100 MG CAP PO SCH ×2 (09:18→22:07)
[2018-09-08] MEDS: CEFTAROLINE FOSAMIL ACETATE 600 MG in SODIUM CHLORIDE 0.9% 250 ML IV SCH ×2 (09:18→20:45)
[2018-09-08] MEDS: NYSTATIN SUSP 500,000 U/5 ML UDC PO SCH ×4 (10:03→20:46)
[2018-09-08] MEDS: APIXABAN 5 MG TABLET PO SCH ×2 (10:03→20:46)
--- NOTE | 2018-09-08 10:22 | Surgery Progress Note ---
Date of Service September 08, 2018 Assessment & Plan (1) Deep venous thrombosis of left upper extremity: -pt. has been started on Eliquis on 09/07/18 -no hematoma at surgical site noted since this has been initiated (2) Septic joint of left shoulder region: -pt. underwent I & D of left SC joint on 09/06/18 -intra -op cultures show MSSA -outpt. blood cultures showed MRSA, but repeat blood cultures obtained and grew MSSA -ID following and pt. is receiving abx. in the form of ceftaroline Subjective Pt. doing well. He has some pain at surgical incision. He notes pain in chest wall is less severe than what he noted pre-op. No shakes, chills, fevers. Physical Exam Physical Exam: Surgical site examined and incision is C/D/I with staple. There is no evidence of expanding hematoma at surgical site. Constitutional: well developed and well nourished; no acute distress Respiratory: normal respiratory effort, lungs clear to auscultation Musculoskeletal: No calf tenderness. Left arm noted t be swollen compared to right Results & Data Vital Signs (Past 12 Hours) Vital Signs Temp Pulse Resp BP Pulse Ox 09/08/18 08:37 36.9 C 76 20 103/68 97 09/07/18 23:24 36.8 C 76 14 100/62 96
--- NOTE | 2018-09-08 14:40 | Infectious Disease Progress Nt ---
Date of Service September 08, 2018 Assessment & Plan (1) MRSA bacteremia: 62-year-old male with MRSA bacteremia left chest wall, neck, and shoulder phlegmon with developing abscesses now status post debridement by thoracic surgery. Follow-up blood cultures are no growth to date. Patient to continue on daptomycin and ceftaroline for now. Would obtain echocardiogram at some point. Will follow. (2) Abscess of chest wall: Subjective Recent events reviewed. Patient underwent debridement of sternoclavicular area with finding of abscess formation. Blood cultures are growing MRSA. Pain better controlled postop. Currently afebrile. No other new specific complaints. Review of Systems Review of Systems: All systems reviewed & are unremarkable except as noted in HPI & below Physical Exam Constitutional: WD/WN, vitals as above comfortable; no acute distress Eyes: PERRL, conjunctivae normal, anicteric sclerae ENMT: external ear and nose normal, oropharynx normal Neck: trachea midline, no thyromegaly neck nontender Respiratory: normal respiratory effort, lungs clear to auscultation normal percussion; no respiratory distress Cardiovascular: Rate/Rhythm: regular rate and regular rhythm Heart Sounds: normal S1 and normal S2; no gallop, no murmur and no cardiac rub Gastrointestinal (Abdomen): normal bowel sounds, soft, nontender, no hepatosplenomegaly Musculoskeletal: no cyanosis or clubbing, extremities motor strength 5/5 No spinal tenderness, no joint swelling or erythema Skin: no rashes, warm and dry Surgical dressing in place left chest Neurologic: moves all extremities and awake; no focal motor deficits Motor/Sensory: no sensory deficit Psychiatric: A+Ox3, euthymic affect Lymphatic: no cervical or axillary lymphadenopathy no inguinal lymphadenopathy Results & Data Vital Signs (Past 12 Hours) Vital Signs Temp Pulse Resp BP Pulse Ox 09/08/18 12:00 98 09/08/18 08:37 36.9 C 76 20 103/68 97 Laboratory Results BMP 09/08/18 07:16 Creatinine 1.14 Diagnostic Findings Microbiology 09/06/18 08:15 Chest Gram Stain - Final 09/06/18 08:15 Chest Aerobic and Anaerobic Culture - Preliminary Staphylococcus aureus 09/07/18 06:26 Blood Aerobic Blood Culture - Preliminary No growth in Aerobic bottle after 24 hours. 09/07/18 06:26 Blood Anaerobic Blood Culture - Preliminary No growth in Anaerobic bottle after 24 hours. 09/07/18 06:35 Blood Aerobic Blood Culture - Preliminary No growth in Aerobic bottle after 24 hours. 09/07/18 06:35 Blood Anaerobic Blood Culture - Preliminary No growth in Anaerobic bottle after 24 hours. 09/05/18 10:12 Blood Aerobic Blood Culture - Final 09/05/18 10:12 Blood Anaerobic Blood Culture - Preliminary Staphylococcus aureus 09/05/18 10:12 Blood Aerobic Blood Culture - Final 09/05/18 10:12 Blood Anaerobic Blood Culture - Preliminary Staphylococcus aureus
--- NOTE | 2018-09-08 15:46 | Hospitalist Progress Note ---
Date of Service September 08, 2018 Assessment & Plan (1) Sepsis: Admitted with sepsis source of infection septic left sternoclavicular joint with abscess extended to left pectoral and subscapularis muscle Meds criteria for sepsis: On admission patient was found to be febrile tachycardic elevated white count Blood culture drawn on 09/04/2018: 2 bottles positive for MRSA Patient was empirically treated with IV daptomycin IV ceftaroline ID consulted Thoracic surgery consult appreciated patient was taken to the OR for I/D Surgical specimen: Growing Staphylococcus coccus aureus MSSA Leukocytosis resolved post surgery, patient remains afebrile, vitals stable Present on Admission?: Yes (2) MRSA bacteremia: ` Outpatient blood culture 09/04/2018: MRSA bacteremia Source of infection, left sternoclavicular joint infection/sepsis with extension of infection -anterior chest wall -Repeat blood cultures on 09/05/2018: MRSA bacteremia Surgical specimen culture on 09/06/2018: Gram-positive cocci-MS SA Repeat blood culture on 09/07/2018: No growth to date -ID consulted appreciate input Patient is continued with daptomycin and Teflaro Appreciate input from thoracic surgery, status post surgery of left sterno clavicular joint Patient recovering well postop Present on Admission?: Yes (3) Cellulitis of chest wall: Treatment outlined above Present on Admission?: Yes (4) Septic joint of left shoulder region: Pt presented with onset of left shoulder pain 2 weeks ago. Patient has had significant progression of left shoulder pain extending to left neck and left chest. Had several outpatient visits in ER visit for left shoulder pain. Patient had MRI C-spine on 09/02/2018: 1. No fractures or subluxation within the cervical spine. 2. [id number] degenerative disc disease and mild facet osteoarthritis throughout the cervical spine as described above. This results in multilevel bilateral neural foraminal narrowing most pronounced at the C4-C5 level. 3. No significant central canal narrowing. 4. Normal cervical spinal cord. 09/02/2018 left shoulder x-ray: Impression: No fracture. Alignment is WNL. Mild acromioclavicular osteoarthritis. Soft tissues are unremarkable. Patient had reported fevers outpatient. 09/04/2018 patient had outpatient labs revealing white count 15,000, blood cultures positive for MRSA and patient was referred to the ER today. In ER patient initially afebrile, peak: 110, RR: 20, BP: 136/79, 97% on room air. WBC: 13. POC lactic acid: 0.8 Remained afebrile post surgery CT CHEST: 1. Findings highly suspicious for septic arthritis of the left sternoclavicular joint with secondary severe myositis/pyomyositis involving the left pectoralis muscle complex, left sternoclavicular muscle, and left subclavius muscle. However, no CT evidence of osteomyelitis. The presence of developing intramuscular abscesses in the left pectoralis muscle complex is suspected as well as phlegmon in the anterior superior mediastinum or immediately superficial to the anterior superior mediastinum. 2. Either severe stenosis or less likely thrombosis of the left subclavian vein. A dedicated left upper extremity Doppler examination with special attention to the left subclavian and left axillary veins it is recommended for further assessment. 3. Minimal left basilar atelectasis. 4. Small pericardial effusion. CT SOFT TISSUE NECK: Extensive infectious process within the left lower neck and upper chest. The findings raise the possibility of septic arthritis of the left sternoclavicular joint with associated myositis/pyomyositis of the left pectoralis and sternoclavicular muscles with suspected developing intramuscular abscesses. Left supraclavicular abscess results in moderate narrowing of the distal left internal jugular vein. Possible thrombus within the left axillary vein which can be assessed with left upper extremity venous Doppler to exclude septic thrombophlebitis. Inflammation extends into the superior mediastinum and close clinical follow-up is recommended given the potential for mediastinitis. Trace left pleural effusion. Patient underwent surgery for left sternoclavicular joint sepsis by CT surgery postoperative day 1 doing very well postop recovery - (5) Hypothyroidism: -On levothyroxine DVT Prophylaxis: SCDs Full Code as per discussion with pt Follows with Dr Israel Tee for routine care (6) Deep venous thrombosis of left upper extremity: Ultrasound of left upper extremity IMPRESSION: Nonocclusive deep venous thrombosis in the left subclavian vein and left axillary vein with extension into the left cephalic vein. Secondary to mechanical compression due to extension of flexion inflammation and subscapularis muscle Discussed with CT surgery Dr. Flood Patient is started on Eliquis for anticoagulation Reports of improvement of swelling and pain on left upper extremity after starting on anticoagulation, no bleeding complication noted on left anterior chest wall surgical site (7) Dysphagia: No further episode tolerating solid well Possible clavicular/anterior chest wall inflammation swelling causing mechanical compression symptom resolved after surgical I&D of anterior chest wall and left sternoclavicular abscess Diet advanced to regular tolerating well CODE STATUS: Full code DVT prophylaxis: Started on Eliquis Disposition: Expected to be discharged home in next 1-2 days Will discuss with infectious disease regarding choice of antibiotics and duration of treatment Patient will need outpatient follow-up with cardiothoracic surgery for continue follow-up for left anterior chest wall surgical incision site Subjective Patient remains afebrile, pain on left neck area has markedly improved, ambulating independently in room, no shortness of breath no discomfort Physical Exam Constitutional: WD/WN, vitals as above no acute distress Eyes: PERRL, conjunctivae normal, anicteric sclerae ENMT: Mallampati Class: III Neck: trachea midline, no thyromegaly normal visual inspection; neck nontender Respiratory: normal respiratory effort, lungs clear to auscultation normal respiratory effort and normal percussion; does not use accessory muscles Auscultation: lungs clear to auscultation bilaterally Cardiovascular: Rate/Rhythm: regular rate and regular rhythm Heart Sounds: normal S1 and normal S2; no gallop, no murmur and no cardiac rub Vessels: normal peripheral pulses; no JVD Gastrointestinal (Abdomen): normal bowel sounds, soft, nontender, no hepatosplenomegaly Musculoskeletal: no cyanosis or clubbing, extremities motor strength 5/5 Spine: no cervical spinal tenderness Skin: normal turgor; no rashes Neurologic: patellar DTR's 2+ bilat, sensation intact no focal motor deficits Psychiatric: A+Ox3, euthymic affect Orientation: cooperative Lymphatic: no cervical or axillary lymphadenopathy no inguinal lymphadenopathy Results & Data Vital Signs (Past 12 Hours) Vital Signs Temp Pulse Resp BP Pulse Ox 09/08/18 15:11 36.7 C 73 16 120/73 100 09/08/18 12:00 98 09/08/18 08:37 36.9 C 76 20 103/68 97 (1) Dysphagia Dysphagia type: unspecified Qualified Code(s): R13.10 - Dysphagia, unspecified (2) Hypothyroidism Hypothyroidism type: unspecified Qualified Code(s): E03.9 - Hypothyroidism, unspecified (3) Deep venous thrombosis of left upper extremity Affected thrombotic vein of extremity: axillary Chronicity: acute Qualified Code(s): I82.A12 - Acute embolism and thrombosis of left axillary vein (4) Septic joint of left shoulder region Septic arthritis organism: staphylococcal Qualified Code(s): M00.012 - Staphylococcal arthritis, left shoulder (5) Sepsis Sepsis type: methicillin resistant Staphylococcus aureus Qualified Code(s): A41.02 - Sepsis due to Methicillin resistant Staphylococcus aureus
[2018-09-08] MEDS: TRAZODONE HCL 50 MG TAB PO SCH (22:07)
[2018-09-08] MEDS: OXYCODONE/ACETAMINOPHEN 5mg/325mg TAB PO PRN (23:53)
[2018-09-09] MEDS: LEVOTHYROXINE SODIUM 50 MCG TABLET PO SCH (05:49)
[2018-09-09 07:57] LABS: Hematocrit (blood only) 32.5 % (42-52); Hemoglobin 11.1 g/dL (14.0-18.0); Mean Corpuscular Hgb Conc 34.2 g/dL (32-36); Mean Corpuscular Volume 91.5 fL (80-100); Mean Platelet Volume 8.7 fL (7.4-10.4); Platelet Count 430 K/uL (130-400); RDW Coefficient of Variation 13.8 % (11.5-14.5); RDW Standard Deviation 46.3 fL (36.4-46.3); Red Blood Count 3.55 M/uL (4.7-6.1); White Blood Count 6.94 K/uL (4.8-10.8)
[2018-09-09 08:33] LABS: Creatinine Clr Calc Pharmacy 70.5 ml/min; Est GFR (African American) 79.7; Est GFR (Non-African American) 68.8
[2018-09-09] MEDS: DOCUSATE SODIUM 100 MG CAP PO SCH ×2 (08:47→21:04)
[2018-09-09] MEDS: CEFTAROLINE FOSAMIL ACETATE 600 MG in SODIUM CHLORIDE 0.9% 250 ML IV SCH (08:48)
[2018-09-09] MEDS: APIXABAN 5 MG TABLET PO SCH ×2 (08:48→20:59)
[2018-09-09] MEDS: NYSTATIN SUSP 500,000 U/5 ML UDC PO SCH ×4 (09:15→20:59)
--- NOTE | 2018-09-09 17:28 | Progress Note ---
DATE: 09/09/2018 Mr. Chung was seen today. He looks great. He really does not have any complaints. I inspected his incision, removed his dressing and it looks very good. His white count is normal and hemoglobin is 11.1. It is interesting in that his blood cultures and his culture intraoperatively all show methicillin-sensitive Staph aureus. Apparently, his outside blood cultures grew methicillin-resistant Staph aureus. At any rate, this will have to be determined by infectious disease on how to treat this, but at this point I am quite pleased with him. The echocardiogram done today shows no evidence of vegetations. At this point, I would continue his antibiotics as seen fit by Dr. Zafar, but I think a discussion about not treating the MRSA may be had. HILARY
--- NOTE | 2018-09-09 19:48 | Infectious Disease Progress Nt ---
Date of Service September 09, 2018 Assessment & Plan (1) MRSA bacteremia: 62-year-old male with MRSA bacteremia left chest wall, neck, and shoulder phlegmon with developing abscesses now status post debridement by thoracic surgery. Follow-up blood cultures are no growth to date. Given probable patient with prolonged i.e. 6 daptomycin to allow easiest outpatient therapy. Discussed with hospitalist. Will follow. (2) Abscess of chest wall: Subjective Recent events reviewed. Patient underwent debridement of sternoclavicular area with finding of abscess formation. Blood cultures are growing MRSA. Pain better controlled postop. Currently afebrile. No other new specific complaints. Review of Systems Review of Systems: All systems reviewed & are unremarkable except as noted in HPI & below Physical Exam Constitutional: WD/WN, vitals as above comfortable, + in distress and + diaphoretic; no acute distress Eyes: PERRL, conjunctivae normal, anicteric sclerae ENMT: external ear and nose normal, oropharynx normal Neck: trachea midline, no thyromegaly neck nontender Respiratory: normal respiratory effort, lungs clear to auscultation normal percussion; no respiratory distress and does not use accessory muscles Cardiovascular: Rate/Rhythm: regular rate and regular rhythm Heart Sounds: normal S1 and normal S2; no gallop, no murmur and no cardiac rub Vessels: normal peripheral pulses; no JVD Gastrointestinal (Abdomen): normal bowel sounds, soft, nontender, no hepatosplenomegaly Musculoskeletal: no cyanosis or clubbing, extremities motor strength 5/5 Spine: thoracic spine normal to inspection and lumbar spine normal to inspection; no cervical spinal tenderness Skin: no rashes, warm and dry normal turgor and + erythema (Left anterior chest wall and shoulder area with erythema and induration); no rashes Neurologic: patellar DTR's 2+ bilat, sensation intact moves all extremities and awake; no focal motor deficits Motor/Sensory: no sensory deficit Psychiatric: A+Ox3, euthymic affect Orientation: cooperative Lymphatic: no cervical or axillary lymphadenopathy no inguinal l ymphadenopathy Results & Data Vital Signs (Past 12 Hours) Vital Signs Temp Pulse Resp BP Pulse Ox 09/09/18 15:05 36.6 C 72 16 111/70 100 Laboratory Results Short CBC 09/09/18 Range/Units 07:27 WBC 6.94 (4.8-10.8) K/uL Hgb 11.1 L (14.0-18.0) g/dL Hct 32.5 L (42-52) % Plt Count 430 H (130-400) K/uL BMP 09/09/18 07:27 Creatinine 1.15 Diagnostic Findings Microbiology 09/06/18 08:15 Chest Gram Stain - Final 09/06/18 08:15 Chest Aerobic and Anaerobic Culture - Preliminary Staphylococcus aureus 09/07/18 06:26 Blood Aerobic Blood Culture - Preliminary No growth in Aerobic bottle after 48 hours. 09/07/18 06:26 Blood Anaerobic Blood Culture - Preliminary No growth in Anaerobic bottle after 48 hours. 09/07/18 06:35 Blood Aerobic Blood Culture - Preliminary No growth in Aerobic bottle after 48 hours. 09/07/18 06:35 Blood Anaerobic Blood Culture - Preliminary No growth in Anaerobic bottle after 48 hours. 09/05/18 10:12 Blood Aerobic Blood Culture - Final 09/05/18 10:12 Blood Anaerobic Blood Culture - Preliminary Staphylococcus aureus 09/05/18 10:12 Blood Aerobic Blood Culture - Final 09/05/18 10:12 Blood Anaerobic Blood Culture - Preliminary Staphylococcus aureus
--- NOTE | 2018-09-09 20:22 | Hospitalist Progress Note ---
Date of Service September 09, 2018 Assessment & Plan (1) Sepsis: Admitted with sepsis source of infection septic left sternoclavicular joint with abscess extended to left pectoral and subscapularis muscle Meds criteria for sepsis: On admission patient was found to be febrile tachycardic elevated white count Blood culture drawn on 09/04/2018: 2 bottles positive for MRSA Patient was empirically treated with IV daptomycin IV ceftaroline ID consulted Thoracic surgery consult appreciated patient was taken to the OR for I/D Surgical specimen: Growing Staphylococcus coccus aureus MSSA Leukocytosis resolved post surgery, patient remains afebrile, vitals stable Discussed with Dr. Zafar: Patient will need 6-week of IV antibiotics Antibiotic changed to IV daptomycin 300 mg daily for ease of administration at home PICC line ordered/consent obtained Patient will need 6 weeks of IV daptomycin Prescription for daptomycin signed and printed left in patient's chart (2) MRSA bacteremia: ` Outpatient blood culture 09/04/2018: MRSA bacteremia Source of infection, left sternoclavicular joint infection/sepsis with extension of infection -anterior chest wall -Repeat blood cultures on 09/05/2018: MRSA bacteremia Surgical specimen culture on 09/06/2018: Gram-positive cocci-MS SA Repeat blood culture on 09/07/2018: No growth to date -ID consulted appreciate input Patient is continued with daptomycin and Teflaro Appreciate input from thoracic surgery, status post surgery of left sternoclavicular joint Patient recovering well postop Teflaro discontinued Will be discharged on IV daptomycin daily for 6-week -PICC line ordered for long-term IV antibiotic treatment (3) Cellulitis of chest wall: Treatment outlined above (4) Septic joint of left shoulder region: Pt presented with onset of left shoulder pain 2 weeks ago. Patient has had significant progression of left shoulder pain extending to left neck and left chest. Had several outpatient visits in ER visit for left shoulder pain. Patient had MRI C-spine on 09/02/2018: 1. No fractures or subluxation within the cervical spine. 2. Xvaf-kd-[id number] degenerative disc disease and mild facet osteoarthritis t hroughout the cervical spine as described above. This results in multilevel bilateral neural foraminal narrowing most pronounced at the C4-C5 level. 3. No significant central canal narrowing. 4. Normal cervical spinal cord. 09/02/2018 left shoulder x-ray: Impression: No fracture. Alignment is WNL. Mild acromioclavicular osteoarthritis. Soft tissues are unremarkable. Patient had reported fevers outpatient. 09/04/2018 patient had outpatient labs revealing white count 15,000, blood cultures positive for MRSA and patient was referred to the ER today. In ER patient initially afebrile, peak: 110, RR: 20, BP: 136/79, 97% on room air. WBC: 13. POC lactic acid: 0.8 Remained afebrile post surgery CT CHEST: 1. Findings highly suspicious for septic arthritis of the left sternoclavicular joint with secondary severe myositis/pyomyositis involving the left pectoralis muscle complex, left sternoclavicular muscle, and left subclavius muscle. However, no CT evidence of osteomyelitis. The presence of developing intramuscular abscesses in the left pectoralis muscle complex is suspected as well as phlegmon in the anterior superior mediastinum or immediately superficial to the anterior superior mediastinum. 2. Either severe stenosis or less likely thrombosis of the left subclavian vein. A dedicated left upper extremity Doppler examination with special attention to the left subclavian and left axillary veins it is recommended for further assessment. 3. Minimal left basilar atelectasis. 4. Small pericardial effusion. CT SOFT TISSUE NECK: Extensive infectious process within the left lower neck and upper chest. The findings raise the possibility of septic arthritis of the left sternoclavicular joint with associated myositis/pyomyositis of the left pectoralis and sternoclavicular muscles with suspected developing intramuscular abscesses. Left supraclavicular abscess results in moderate narrowing of the distal left internal jugular vein. Possible thrombus within the left axillary vein which can be assessed with left upper extremity venous Doppler to exclude septic thrombophlebitis. Inflammation extends into the superior mediastinum and close clinical follow-up is recommended given the potential for mediastinitis. Trace left pleural effusion. Patient underwent surgery for left sternoclavicular joint sepsis by CT surgery Recovering well postoperatively Outpatient follow-up with Dr. Flood in 1 to 2 weeks for surgical incision check/staple removal - (5) Hypothyroidism: -On levothyroxine DVT Prophylaxis: SCDs Full Code as per discussion with pt Follows with Dr Israel Tee for routine care (6) Deep venous thrombosis of left upper extremity: Ultrasound of left upper extremity IMPRESSION: Nonocclusive deep venous thrombosis in the left subclavian vein and left axillary vein with extension into the left cephalic vein. Secondary to mechanical compression due to extension of flexion inflammation and subscapularis muscle Discussed with CT surgery Dr. Flood Patient is started on Eliquis for anticoagulation Reports of improvement of swelling and pain on left upper extremity after starting on anticoagulation, no bleeding complication noted on left anterior chest wall surgical site Patient will be treated with Eliquis 10 mg (2 tablets) twice daily for 7 days(first day of treatment on 09/07/2018) Then continue 5 mg (1 tablet) by mouth twice daily Patient will be discharged with p.o. Eliquis for 4 to 6 weeks Prescription for Eliquis sent to patient's pharmacy [facility] co- pay $50 per month /patient updated Subjective Patient ambulating in hallway, denies of any pain or discomfort no fevers chills Left upper pain has improved . Patient underwent debridement of sternoclavicular area with finding of abscess formation. Blood cultures : Positive for MRSA Discussed with Dr. Zafar, patient will need 6 weeks of IV antibiotics for osteomyelitis of the sternoclavicular joint Antibiotic changed to IV daptomycin once daily for ease of administration at home Ordered for PICC line placement Physical Exam Constitutional: no acute distress Eyes: PERRL, conjunctivae normal, anicteric sclerae ENMT: external ear and nose normal, oropharynx normal Neck: trachea midline, no thyromegaly Respiratory: normal respiratory effort, lungs clear to auscultation Cardiovascular: RRR, no murmur, no edema Musculoskeletal: That is post left anterior chest wall, left sternoclavicular septic joint debridement surgery Bandage removed/ stephanie intact, area healing well, no erythema edema drainage noted Skin: Stephanie on surgical incision on anterior chest wall, wound appears to be healing well Neurologic: PERRL, EOMI, accommodation nl, no face palsy, no dysarthria Psychiatric: A+Ox3, euthymic affect Results & Data Vital Signs (Past 12 Hours) Vital Signs Temp Pulse Resp BP Pulse Ox 09/09/18 15:05 36.6 C 72 16 111/70 100 (1) Hypothyroidism Hypothyroidism type: unspecified Qualified Code(s): E03.9 - Hypothyroidism, unspecified (2) Deep venous thrombosis of left upper extremity Affected thrombotic vein of extremity: axillary Chronicity: acute Qualified Code(s): I82.A12 - Acute embolism and thrombosis of left axillary vein (3) Sepsis Sepsis type: methicillin resistant Staphylococcus aureus Qualified Code(s): A41.02 - Sepsis due to Methicillin resistant Staphylococcus aureus (4) Septic joint of left shoulder region Septic arthritis organism: staphylococcal Qualified Code(s): M00.012 - Staphylococcal arthritis, left shoulder
[2018-09-09] MEDS: TRAZODONE HCL 50 MG TAB PO SCH (20:59)
[2018-09-09] MEDS: OXYCODONE/ACETAMINOPHEN 5mg/325mg TAB PO PRN (22:19)
[2018-09-10] MEDS: LEVOTHYROXINE SODIUM 50 MCG TABLET PO SCH (05:36)
[2018-09-10] MEDS: APIXABAN 5 MG TABLET PO SCH (07:52)
[2018-09-10] MEDS: NYSTATIN SUSP 500,000 U/5 ML UDC PO SCH ×3 (07:53→16:53)
[2018-09-10] MEDS: DOCUSATE SODIUM 100 MG CAP PO SCH (07:53)
--- NOTE | 2018-09-10 08:26 | Progress Note ---
DATE: 09/10/2018 Mr. Chung was seen today. He continues to look very good. His incision looks good. He has a minimal amount of swelling. The incision is intact. He has been afebrile. The patient has methicillin-sensitive staph aureus growing from his intraoperative cultures and his blood cultures here. He is completely defervesced with a normal white count and no fever. He is getting ready to be discharged soon. We will see him back in the office in a week.
[2018-09-10 08:51] LABS: Creatinine Clr Calc Pharmacy 63.4 ml/min; Est GFR (Non-African American) 60.4
[2018-09-10] MEDS ORDERED: DAPTOmycin 300 MG in SYRINGE 0 ML IV SCH (09:00)
[2018-09-10] MEDS ORDERED: DAPTOmycin 500 MG VIAL IV SCH (09:00)
--- NOTE | 2018-09-10 14:22 | Infectious Disease Progress Nt ---
Date of Service September 10, 2018 Assessment & Plan (1) Abscess of chest wall: Patient with chest wall abscess with septic arthritis status post debridement with cultures positive for methicillin sensitive staph aureus. Recommend 6 weeks of IV antibiotics, patient to be treated with daptomycin to allow easy outpatient therapy. Would like to see him back in 2 weeks for follow-up. (2) Septic joint of left shoulder region: (3) Bacteremia due to methicillin susceptible Staphylococcus aureus (MSSA): Subjective Patient seen in follow-up for sternal abscess. Patient appears comfortable, offers no new complaints. Finds it difficulty to lie flat, otherwise pain minimal. No fever. Blood cultures growing methicillin sensitive staph aureus. Review of Systems Review of Systems: All systems reviewed & are unremarkable except as noted in HPI & below Physical Exam Constitutional: WD/WN, vitals as above comfortable; no acute distress Eyes: PERRL, conjunctivae normal, anicteric sclerae ENMT: external ear and nose normal, oropharynx normal Neck: trachea midline, no thyromegaly neck nontender Respiratory: normal respiratory effort, lungs clear to auscultation normal percussion; no respiratory distress Cardiovascular: Rate/Rhythm: regular rate and regular rhythm Heart Sounds: normal S1 and normal S2; no gallop, no murmur and no cardiac rub Gastrointestinal (Abdomen): normal bowel sounds, soft, nontender, no hepatosplenomegaly Musculoskeletal: no cyanosis or clubbing, extremities motor strength 5/5 No spinal tenderness, no joint swelling or erythema Skin: no rashes, warm and dry + wound (Chest wall surgical wound appears to be healing appropriately) Neurologic: moves all extremities and awake; no focal motor deficits Motor/Sensory: no sensory deficit Psychiatric: A+Ox3, euthymic affect Lymphatic: no cervical or axillary lymphadenopathy no inguinal lymphadenopathy Results & Data Vital Signs (Past 12 Hours) Vital Signs Temp Pulse Pulse Pulse Resp BP Pulse Ox 09/10/18 12:57 36.6 C 77 88 72 16 110/72 98 09/10/18 08:00 36.6 C 72 16 110/72 98 Laboratory Results [facility] 09/10/18 07:50 Creatinine 1.28 Cardiac Enzymes 09/10/18 Range/Units 07:50 Total Creatine Kinase 85 (39-308) U/L Diagnostic Findings Microbiology 09/06/18 08:15 Chest Gram Stain - Final 09/06/18 08:15 Chest Aerobic and Anaerobic Culture - Preliminary Staphylococcus aureus 09/07/18 06:26 Blood Aerobic Blood Culture - Preliminary No growth in Aerobic bottle after 48 hours. 09/07/18 06:26 Blood Anaerobic Blood Culture - Preliminary No growth in Anaerobic bottle after 48 hours. 09/07/18 06:35 Blood Aerobic Blood Culture - Preliminary No growth in Aerobic bottle after 48 hours. 09/07/18 06:35 Blood Anaerobic Blood Culture - Preliminary No growth in Anaerobic bottle after 48 hours. 09/05/18 10:12 Blood Aerobic Blood Culture - Final 09/05/18 10:12 Blood Anaerobic Blood Culture - Preliminary Staphylococcus aureus 09/05/18 10:12 Blood Aerobic Blood Culture - Final 09/05/18 10:12 Blood Anaerobic Blood Culture - Preliminary Staphylococcus aureus (1) Septic joint of left shoulder region Septic arthritis organism: staphylococcal Qualified Code(s): M00.012 - Staphylococcal arthritis, left shoulder
--- NOTE | 2018-09-10 17:08 | Hospitalist Progress Note ---
Date of Service September 10, 2018 Assessment & Plan (1) Sepsis: Admitted with sepsis source of infection septic left sternoclavicular joint with abscess extended to left pectoral and subscapularis muscle Meds criteria for sepsis: On admission patient was found to be febrile tachycardic elevated white count Blood culture drawn on 09/04/2018: 2 bottles positive for MRSA Patient was empirically treated with IV daptomycin IV ceftaroline Thoracic surgery consult appreciated patient was taken to the OR for I/D Surgical specimen: Growing Staphylococcus coccus aureus MSSA Leukocytosis resolved post surgery, patient remains afebrile, vitals stable Discussed with ID Dr. Zafar: Patient will need 6-week of IV antibiotics Continue IV daptomycin 450 mg daily to complete 6 weeks course PICC line placed today Follow up with ID in 2 weeks (2) MRSA bacteremia: Outpatient blood culture 09/04/2018: MRSA bacteremia Source of infection, left sternoclavicular joint infection/sepsis with extension of infection -anterior chest wall -Repeat blood cultures on 09/05/2018: MRSA bacteremia Surgical specimen culture on 09/06/2018: Gram-positive cocci-MS SA Repeat blood culture on 09/07/2018: No growth to date -ID consulted appreciate input Patient is continued with daptomycin and Teflaro Appreciate input from thoracic surgery, status post surgery of left sternoclavicular joint Patient recovering well postop Teflaro discontinued Continue IV dapto for 6 weeks therapy (3) Cellulitis of chest wall: Treatment outlined above (4) Septic joint of left shoulder region: Pt presented with onset of left shoulder pain 2 weeks ago. Patient has had significant progression of left shoulder pain extending to left neck and left chest. Had several outpatient visits in ER visit for left shoulder pain. Patient had MRI C-spine on 09/02/2018: 1. No fractures or subluxation within the cervical spine. 2. [id number] degenerative disc disease and mild facet osteoarthritis thr oughout the cervical spine as described above. This results in multilevel bilateral neural foraminal narrowing most pronounced at the C4-C5 level. 3. No significant central canal narrowing. 4. Normal cervical spinal cord. 09/02/2018 left shoulder x-ray: Impression: No fracture. Alignment is WNL. Mild acromioclavicular osteoarthritis. Soft tissues are unremarkable. Patient had reported fevers outpatient. 09/04/2018 patient had outpatient labs revealing white count 15,000, blood cultures positive for MRSA and patient was referred to the ER today. In ER patient initially afebrile, peak: 110, RR: 20, BP: 136/79, 97% on room air. WBC: 13. POC lactic acid: 0.8 Remained afebrile post surgery CT CHEST: 1. Findings highly suspicious for septic arthritis of the left sternoclavicular joint with secondary severe myositis/pyomyositis involving the left pectoralis muscle complex, left sternoclavicular muscle, and left subclavius muscle. However, no CT evidence of osteomyelitis. The presence of developing intramuscular abscesses in the left pectoralis muscle complex is suspected as well as phlegmon in the anterior superior mediastinum or immediately superficial to the anterior superior mediastinum. 2. Either severe stenosis or less likely thrombosis of the left subclavian vein. A dedicated left upper extremity Doppler examination with special attention to the left subclavian and left axillary veins it is recommended for further assessment. 3. Minimal left basilar atelectasis. 4. Small pericardial effusion. CT SOFT TISSUE NECK: Extensive infectious process within the left lower neck and upper chest. The findings raise the possibility of septic arthritis of the left sternoclavicular joint with associated myositis/pyomyositis of the left pectoralis and sternoclavicular muscles with suspected developing intramuscular abscesses. Left supraclavicular abscess results in moderate narrowing of the distal left internal jugular vein. Possible thrombus within the left axillary vein which can be assessed with left upper extremity venous Doppler to exclude septic thrombophlebitis. Inflammation extends into the superior mediastinum and close clinical follow-up is recommended given the potential for mediastinitis. Trace left pleural effusion. Patient underwent surgery for left sternoclavicular joint sepsis by CT surgery Recovering well postoperatively Outpatient follow-up with Dr. Flood in 1 to 2 weeks for surgical incision check/staple removal - (5) Hypothyroidism: -On levothyroxine (6) Deep venous thrombosis of left upper extremity: Ultrasound of left upper extremity IMPRESSION: Nonocclusive deep venous thrombosis in the left subclavian vein and left axillary vein with extension into the left cephalic vein. Secondary to mechanical compression due to extension of flexion inflammation and subscapularis muscle Discussed with CT surgery Dr. Flood Patient is started on Eliquis for anticoagulation Reports of improvement of swelling and pain on left upper extremity after starting on anticoagulation, no bleeding complication noted on left anterior chest wall surgical site Patient will be treated with Eliquis 10 mg (2 tablets) twice daily for 7 days(first day of treatment on 09/07/2018) Then continue 5 mg (1 tablet) by mouth twice daily Patient will be discharged with p.o. Eliquis for 4 to 6 weeks Prescription for Eliquis sent to patient's [facility] co- pay $50 per month /patient updated Disposition Discharge home today Subjective Pt was seen and examined Sitting in chair with no distress Pt said that he feels fine Denies any chest pain, palpitation, dizziness and SOB Physical Exam Physical Exam: General- No acute distress Head- atraumatic Eyes- PERRL, EOMI, ENT- oropharynx clear Neck- supple, no JVD Lungs- clear to auscultation Heart- regular rhythm; no murmur Abdomen- normal bowel sounds, soft, nontender Extremities- no calf tenderness Neuro- alert, oriented x 3; PERRL, EOMI; no facial palsy; no dysarthria Skin- warm & dry, Ravi on surgical incision on anterior chest wall, normal wound healing with no erythema or drainage Results & Data Vital Signs (Past 12 Hours) Vital Signs Temp Pulse Pulse Pulse Resp BP Pulse Ox 09/10/18 12:57 36.6 C 77 88 72 16 110/72 98 09/10/18 08:00 36.6 C 72 16 110/72 98 (1) Hypothyroidism Hypothyroidism type: unspecified Qualified Code(s): E03.9 - Hypothyroidism, unspecified (2) Deep venous thrombosis of left upper extremity Affected thrombotic vein of extremity: axillary Chronicity: acute Qualified Code(s): I82.A12 - Acute embolism and thrombosis of left axillary vein (3) Sepsis Sepsis type: methicillin resistant Staphylococcus aureus Qualified Code(s): A41.02 - Sepsis due to Methicillin resistant Staphylococcus aureus (4) Septic joint of left shoulder region Septic arthritis organism: staphylococcal Qualified Code(s): M00.012 - Staphylococcal arthritis, left shoulder
[2018-09-11] MEDS ORDERED: DAPTOmycin 450 MG in SYRINGE 0 ML IV SCH (09:00)
--- NOTE | 2018-09-12 09:01 | Discharge Summary ---
Date of Service September 10, 2018 Admission HPI Per Admitting Provider Pt is 62 y/o M with PMH hypothyroidism was referred to ER from PCP's office for abnormal labs - Positive blood cultures. Patient reports 2 weeks ago started with left anterior shoulder pain that radiated to lateral and posterior neck. Patient was seen by PCP and 08/25/2018 and was thought secondary to muscle strain and was started on baclofen and Medrol. Patient had continued pain and was seen in ER 08/28/2018 and at that time his WBC: 10 and was given prescription for oxycodone. Patient followed up with PCP 09/02/2018 with continued pain and had left finger paresthesias. At that time also reported urinary urgency and did not make it to the bathroom a couple of times. Denies any other urinary incontinence, dysuria. On 09/02/2018 patient had an MRI C-spine which showed no fracture and showed degenerative disc disease. X-ray left shoulder unremarkable. Patient states 09/03/2018 developed fever. He had negative urine culture. 09/04/2018 patient had outpatient lab work and had noted WBC of 15,000 and had blood cultures drawn. Today blood cultures positive methicillin resistant staph aureus patient was referred to ER. Patient reports limited ROM of left shoulder as causes increased pain. ROM of neck causes pain also. He was not aware that he had any chest edema or erythema. He does note that he has been having trouble swallowing large bites of solid food over the past 4 days. He denies choking episodes. Reports nausea last week no vomiting. Patient states prior to pain he was weightlifting otherwise denies any known trauma. Denies any open wounds or lesions. Denies any rashes or known insect bites/stings. Pt reports no BM in couple of days since taking pain medication. C/O NAIR several days ago, none today. Denies back pain, diaphoresis, dizziness, syncope, vision changes, CP, SOB, orthopnea, palpitations, cough, sore throat, rhinorrhea, abdominal pain, paresthesias, weakness, extremity weakness, extremity edema, rashes, dysuria, hematuria. Denies any history of valve replacement, joint replacement. Admission Exam Per Admitting Provider General: no acute distress, ill appearing, WDWN Head: normocephalic, atraumatic Eyes: PERRL, EOM's intact, conjunctiva non-injected, anicteric ENT: normal inspection external ears, nose, mucous membranes mildly dry Neck: supple, trachea midline, + edema lateral neck without erythema, + tenderness to palpation; posterior neck without erythema and non-tender to palpation, limited flexion and extension neck with increased tenderness Lungs: clear, no respiratory distress, no wheezing/rhonchi/rales Chest wall: +erythema, edema and warmth to left anterior chest wall over left pectoralis extending to sternum and clavicle, +significant tenderness to palpation CV: sinus tachycardia, P: 110, no murmur, no pretibial edema Abd: normal BS, soft, non-tender Ext: L Shoulder: No significant erythema of shoulder, Limited active ROM left shoulder and with significant tenderness, +tenderness to palpation anterior shoulder, clavicular region. extension of flexion of L elbow and wrist and fingers intact; distal pulses intact. Neuro: A&O x 3, no focal deficits noted, normal affect Skin: warm, dry, as above in chest Principal Diagnosis SEPSIS Left sternal clavicular joint septic arthritis/Anterior chest wall abscess MRSA bacteremia Deep venous thrombosis of left upper extremity: Hypothyroidism Discharge Exam General- No acute distress Head- atraumatic Eyes- PERRL, EOMI, ENT- oropharynx clear Neck- supple, no JVD Lungs- clear to auscultation Heart- regular rhythm; no murmur Abdomen- normal bowel sounds, soft, nontender Extremities- no calf tenderness Neuro- alert, oriented x 3; PERRL, EOMI; no facial palsy; no dysarthria Skin- warm & dry, [place] on surgical incision on anterior chest wall, normal wound healing with no erythema or drainage Discharge Data Allergies Allergy/AdvReac Type Severity Reaction Status Date / Time No Known Allergies Allergy Verified 09/12/18 08:29 Consultations 09/05/18 12:20 ED Decision to Admit Stat 09/05/18 13:46 Consult Infectious Diseases Routine 09/05/18 14:56 Consult Thoracic Surgery Routine Procedures Performed Operation Date: 09/06/18 07:30 Actual Procedures p Left Sternoclavicular Joint Debridement with Implanting Antibiotic Beads(Left) - London Dye MD, FACS Ordered Studies 09/05/18 12:43 CT chest w con Stat 09/05/18 12:47 CT soft tissue neck w con Stat 09/05/18 15:25 US venous doppler UE LT Urgent US venous doppler UE LT CLINICAL HISTORY: 62 years-old Male presenting with r/o thrombosis. TECHNIQUE: Real-time grayscale and color and spectral Doppler ultrasound imaging of the veins of the left upper extremity was performed. Compression and augmentation were also utilized. COMPARISON: None. FINDINGS: LEFT: Internal jugular vein: Patent. Subclavian vein: Nonocclusive filling defect consistent with thrombus. Axillary vein: Slow flow noted in the axillary vein with minimal thrombus distally. Brachial vein: Patent. Basilic vein (superficial): Patent. Cephalic vein (superficial): Thrombus extending from the subclavian vein in the cephalic vein. Radial vein: Patent. Ulnar vein: Patent. Other: None. IMPRESSION: Nonocclusive deep venous thrombosis in the left subclavian vein and left axillary vein with extension into the left cephalic vein. The report will be called/faxed according to standard departmental protocol for a critical finding. Electronically signed by: Dmitriy Doll M.D. 09/05/2018 5:35 PM Dictated: 09/05/18 1716 Transcribed: 09/05/[address] OF THE NECK WITH IV CONTRAST CLINICAL HISTORY: Neck pain. Evaluate for abscess. COMPARISON STUDY: MRI of the cervical spine September 02, 2018. TECHNIQUE: Following IV administration of 94 mL of Optiray-320, helical axial images of the neck were obtained. Sagittal and coronal reconstructions were viewed. Automated exposure control was utilized for the study. A dose lowering technique was utilized adhering to the principles of ALARA. CT DOSE: 725.73 mGy.cm FINDINGS: Visualized portions of the intracranial contents are unremarkable. There is no prevertebral edema. The epiglottis is normal. There is no abscess within the upper neck. Note is made of extensive inflammatory process which appears to be centered on the left sternoclavicular joint. There is increased fluid within the left sternoclavicular joint. Extensive inflammation extends into the left pectoralis major muscle. There is a subtle peripherally enhancing fluid collection within the left pectoralis muscle on axial image 104 of 109 which is suspicious for developing intramuscular abscess. The inflammatory process extends into the left supraclavicular region. Note is made of a 1.8 cm left supraclavicular fluid collection on image 86 with mass effect upon the left internal jugular vein which remains patent. There is moderate narrowing of the distal left internal jugular vein. There is dilatation of the left axillary vein and its branches. Involvement of the left sternoclavicular muscle is also noted with heterogeneity and adjacent infiltration. Inflammatory process may extend into the anterior mediastinum. A trace left pleural effusion is noted. The chest will be reported separately. The airways patent. There is no CT evidence for osteomyelitis. IMPRESSION: Extensive infectious process within the left lower neck and upper chest. The findings raise the possibility of septic arthritis of the left sternoclavicular joint with associated myositis/pyomyositis of the left pectoralis and sternoclavicular muscles with suspected developing intramuscular abscesses. Left supraclavicular abscess results in moderate narrowing of the distal left internal jugular vein. Possible thrombus within the left axillary vein which can be assessed with left upper extremity venous Doppler to exclude septic thrombophlebitis. Inflammation extends into the superior mediastinum and close clinical follow-up is recommended given the potential for mediastinitis. Trace left pleural effusion. Electronically signed by: Tree Leon M.D. 09/05/2018 1:54 PM Dictated: 09/05/18 1336 Transcribed: 09/05/[address] chest w con CLINICAL HISTORY: 62 years-old Male presenting with left-sided pain, chest wall pain, chest wall infection /abscess. TECHNIQUE: Multidetector CT imaging of the chest was performed after the administration of intravenous contrast. IV contrast: 94 mL of Optiray 320. One or more dose lowering techniques were used consistent with the principles of ALARA (as low as reasonably achievable), including automatic exposure control, mA or kV adjustment to individual patient size, and/or use of iterative reconstruction. COMPARISON: None. CT DOSE (mGy.cm): The estimated cumulative dose is 725.73. FINDINGS: Radio Dispatcher topogram: Unremarkable. Soft tissues: Swelling and inflammatory change centered around the left sternoclavicular joint, which is itself distended with fluid. There is heterogeneous enhancement of the left pectoralis muscle complex with suggestion of hypoattenuation likely indicating developing collections (series 7 image 53). Swelling of the left subclavian is muscle and inflammation deep to the left sternoclavicular joint with resultant inflammatory change either in the anterior mediastinum or immediately superficial to the anterior superior mediastinum. The left brachiocephalic vein is compressed at the confluence of the left internal jugular and left subclavian vein. The left subclavian vein is poorly delineated and is suspected to be severely stenotic due to mass effect. An alternate diagnostic consideration is thrombosis or direct involvement of the left subclavian vein. The left axillary vein is distended with hypoenhancement most suggestive of delayed opacification or less likely thrombosis. The aortic arch and major branch vessels are patent and nonstenotic. Inflammatory change extends into the left neck with edema in the left sternoclavicular muscle and extensive skin thickening and subcutaneous fat infiltration. This also extends inferiorly involving a majority of the left chest wall anterolaterally. Normal heart size. Coronary artery calcification. Small pericardial effusion. No pleural effusion. Upper abdomen normal. Lungs and airways: No pneumothorax. Central airways patent. Pulmonary arteries are not significantly enlarged relative to adjacent bronchi. No interlobular septal thickening. Dependent consolidation to a minimal degree in the left lung base likely atelectasis. No other focal infiltrate or nodule. Mass effect on the anterior paramediastinal left apex. There is no significant involvement of the lung parenchyma. Musculoskeletal: Fluid distended left sternoclavicular joint. There is no osseous erosion or periosteal reaction to suggest CT evidence of osteomyelitis. IMPRESSION: 1. Findings highly suspicious for septic arthritis of the left sternoclavicular joint with secondary severe myositis/pyomyositis involving the left pectoralis muscle complex, left sternoclavicular muscle, and left subclavius muscle. However, no CT evidence of osteomyelitis. The presence of developing intramuscular abscesses in the left pectoralis muscle complex is suspected as well as phlegmon in the anterior superior mediastinum or immediately superficial to the anterior superior mediastinum. 2. Either severe stenosis or less likely thrombosis of the left subclavian vein. A dedicated left upper extremity Doppler examination with special attention to the left subclavian and left axillary veins it is recommended for further assessment. 3. Minimal left basilar atelectasis. 4. Small pericardial effusion. The report will be called/faxed according to standard departmental protocol. Electronically signed by: Dmitriy Doll M.D. 09/05/2018 1:52 PM Dictated: 09/05/18 1339 Transcribed: 09/05/18 1339 XR chest 1V portable HISTORY: 62 years-old Male fever acute fever COMPARISON: None available TECHNIQUE: Portable AP view of the chest FINDINGS: Cardiomediastinal and hilar silhouettes are within normal limits. Mild left hemidiaphragmatic elevation. Minimal subsegmental left basilar atelectasis. There is no pneumothorax, pleural effusion, focal airspace consolidation or overt pulmonary edema. Degenerative changes of the shoulders and spine. IMPRESSION: Mild left hemidiaphragmatic elevation without acute process. The above report was generated using voice recognition software. It may contain grammatical, syntax or spelling errors. Electronically signed by: Obi Rdz M.D. 09/05/2018 10:18 AM Dictated: 09/05/18 1016 Transcribed: 09/05/18 1016 Hospital Course (1) Sepsis: Admitted with sepsis source of infection septic left sternoclavicular joint with abscess extended to left pectoral and subscapularis muscle Meds criteria for sepsis: On admission patient was found to be febrile tachycardic elevated white count Blood culture drawn on 09/04/2018: 2 bottles positive for MRSA Patient was empirically treated with IV daptomycin IV ceftaroline Thoracic surgery consult appreciated patient was taken to the OR for I/D Surgical specimen: Growing Staphylococcus coccus aureus MSSA Leukocytosis resolved post surgery, patient remains afebrile, vitals stable Discussed with ID Dr. Zafar: Patient will need 6-week of IV antibiotics Continue IV daptomycin 450 mg daily to complete 6 weeks course PICC line placed today Follow up with ID in 2 weeks (2) MRSA bacteremia: Outpatient blood culture 09/04/2018: MRSA bacteremia Source of infection, left sternoclavicular joint infection/sepsis with extension of infection -anterior chest wall -Repeat blood cultures on 09/05/2018: MRSA bacteremia Surgical specimen culture on 09/06/2018: Gram-positive cocci-MS SA Repeat blood culture on 09/07/2018: No growth to date -ID consulted appreciate input Patient is continued with daptomycin and Teflaro Appreciate input from thoracic surgery, status post surgery of left sternoclavicular joint Patient recovering well postop Teflaro discontinued Continue IV dapto for 6 weeks therapy (3) Cellulitis of chest wall: Treatment outlined above (4) Septic joint of left shoulder region: Pt presented with onset of left shoulder pain 2 weeks ago. Patient has had significant progression of left shoulder pain extending to left neck and left chest. Had several outpatient visits in ER visit for left shoulder pain. Patient had MRI C-spine on 09/02/2018: 1. No fractures or subluxation within the cervical spine. 2. [id number] degenerative disc disease and mild facet osteoarthritis throughout the cervical spine as described above. This results in multilevel bilateral neural foraminal narrowing most pronounced at the C4-C5 level. 3. No significant central canal narrowing. 4. Normal cervical spinal cord. 09/02/2018 left shoulder x-ray: Impression: No fracture. Alignment is WNL. Mild acromioclavicular osteoarthritis. Soft tissues are unremarkable. Patient had reported fevers outpatient. 09/04/2018 patient had outpatient labs revealing white count 15,000, blood cultures positive for MRSA and patient was referred to the ER today. In ER patient initially afebrile, peak: 110, RR: 20, BP: 136/79, 97% on room air. WBC: 13. POC lactic acid: 0.8 Remained afebrile post surgery CT CHEST: 1. Findings highly suspicious for septic arthritis of the left sternoclavicular joint with secondary severe myositis/pyomyositis involving the left pectoralis muscle complex, left sternoclavicular muscle, and left subclavius muscle. However, no CT evidence of osteomyelitis. The presence of developing intram uscular abscesses in the left pectoralis muscle complex is suspected as well as phlegmon in the anterior superior mediastinum or immediately superficial to the anterior superior mediastinum. 2. Either severe stenosis or less likely thrombosis of the left subclavian vein. A dedicated left upper extremity Doppler examination with special attention to the left subclavian and left axillary veins it is recommended for further assessment. 3. Minimal left basilar atelectasis. 4. Small pericardial effusion. CT SOFT TISSUE NECK: Extensive infectious process within the left lower neck and upper chest. The findings raise the possibility of septic arthritis of the left sternoclavicular joint with associated myositis/pyomyositis of the left pectoralis and sternoclavicular muscles with suspected developing intramuscular abscesses. Left supraclavicular abscess results in moderate narrowing of the distal left internal jugular vein. Possible thrombus within the left axillary vein which can be assessed with left upper extremity venous Doppler to exclude septic thrombophlebitis. Inflammation extends into the superior mediastinum and close clinical follow-up is recommended given the potential for mediastinitis. Trace left pleural effusion. Patient underwent surgery for left sternoclavicular joint sepsis by CT surgery Recovering well postoperatively Outpatient follow-up with Dr. Flood in 1 to 2 weeks for surgical incision check/staple removal - (5) Hypothyroidism: -On levothyroxine (6) Deep venous thrombosis of left upper extremity: Ultrasound of left upper extremity IMPRESSION: Nonocclusive deep venous thrombosis in the left subclavian vein and left axillary vein with extension into the left cephalic vein. Secondary to mechanical compression due to extension of flexion inflammation and subscapularis muscle Discussed with CT surgery Dr. Flood Patient is started on Eliquis for anticoagulation Reports of improvement of swelling and pain on left upper extremity after starting on anticoagulation, no bleeding complication noted on left anterior chest wall surgical site Patient will be treated with Eliquis 10 mg (2 tablets) twice daily for 7 days(first day of treatment on 09/07/2018) Then continue 5 mg (1 tablet) by mouth twice daily Patient will be discharged with p.o. Eliquis for 4 to 6 weeks Prescription for Eliquis sent to patient's [facility] co- pay $50 per month /patient updated Disposition Discharge home today Total Time Total Time Spent Total Time Spent (In Minutes): 35 minutes Total Time Includes: Examination of the Patient, Discharge Planning, Medication Reconciliation, Communication With Other Providers and Other Discharge Plan Discharge Items Patient Disposition: Home - Self-Care Reason For Visit: FEVER/CHEST WALL PAIN Discharge Diagnosis: Left sternal clavicular joint septic arthritis, anterior chest wall abscess, MSSA bacteremia Discharge Goals: Decrease discomfort and Therapeutic intervention Activity: As commented below Activity Comment: Do not lift left arm above shoulder for the next 2 weeks do not lift more than 5 pound weight on the left arm for the next 2 weeks Non-emergency contact: Primary Care Provider Call non-emergency contact if: you have any medication questions Follow-up/Referrals: London Dye MD, FACS [Surgeon] - (IN 1-2 WEEKS ) Israel Tee DO [Primary Care Provider] - Diet: Regular Other Ambulatory Orders: Creatine Kinase (Routine) Timeframe: 1 Week Location: Determined by Patient Ordered By: Juana Chong Comprehensive Metabolic Panel (Routine) Timeframe: 1 Week Location: Determined by Patient Ordered By: Juana Chong Add Provider Instructions: Follow up with your primary care provider Dr. Brannon on 09/15 @ 10:45 AM Follow up with Infectious disease Dr. Zafar in 2 weeks (Please call [phone] to schedule for follow up) Follow up with thoracic surgeon Dr. Dye in 1-2 week (Please call office to schedule for the follow up appointment) Continue Eliquis for 4 to 6 weeks, COMPLETE IV ANTIBIOTIC DAPTOMYCIN FOR 6 WEEKS ( 42 DAYS ) PLEASE TAKE OVER THE COUNTER PROBIOTICS DURING THE COURSE OF ANTIBIOTIC TO PREVENT ANTIBIOTIC INDUCED GASTROENTERITIS /DIARRHEA Please check lab weekly for Comprehensive metabolic panel/CK level, ESR and CBC while on IV daptomycin TAKE ELIQUIS 10 MG ( 2 TABLET ) TWICE DAILY FOR 3 MORE DAYS (DOSE STARTED ON 08/25 06/13 -NEED TOTAL 7 DAYS) THEN CONTINUE TO TAKE 5 MG ( 1 TABLET ) TWICE DAILY PLEASE NOTIFY FAMILY PHYSICIAN WITH ANY BLEEDING COMPLICATION (DARK STOOL OR BLOOD IN YOUR URINE) DO NOT TAKE ASPIRIN , MOTRIN, ALEVE , ADVIL , IBUPROPHEN , NAPROXON , AVOID NSAID 'S OVER THE COUNTER PAIN MEDS -WHILE TAKING ELIQUIS -SIGNIFICANT RISK OF BLEEDING IN STOMACH Appointment for [facility] for IV daptomycin antibiotic , September 11 at 9:00am September 12 at 8:30am Saturday and Saturday, September 13 and at 8:00am Saturday-Saturday thereafter at 8:30am. Medication Instructions: Eliquis Your condition is typically treated with an anticoagulant. Anticoagulants will thin your blood to help prevent new clots. You should take her medication exactly as directed. Never skip a dose. Never take a double dose. If you miss a dose, take it as soon as you remember. Avoid NSAIDs (Motrin, Aleve, Naproxen, Ibuprofen, Advil, Meloxicam,..) due to risks of bleeding Call your Primary Care doctor if you experience any of the following: Swelling or Pain in your leg Sudden, continuous pain deep in a muscle Pain that worsens when you are active or when you stand still for a long time Chest Pain Sudden Shortness of Breath Rapid or pounding heart beat Fainting Dizziness Cough with blood or bloody sputum Sweating more than normal Bruises Heavy or uncontrolled bleeding Blood in your urine, stool or vomit Black or tarry stools Caring for Your Self at Home: Avoid sitting, standing or lying down for long periods without moving your legs and feet When traveling by car, stop to get out and move around at least once every 3 hours On long airplane, train or bus rides, get up and move around when possible If you can't get up, wiggle your toes and tighten your calves to keep your blood moving It is important for you to keep your follow up appointments with your medical provider. Prescriptions: New Eliquis 5 mg (74 tabs) tablets,dose pack 5 mg PO BID Qty: 74 RF: 0 daptomycin 500 mg recon soln 450 mg IV DAILY Qty: 42 RF: 0 Continued trazodone 50 mg Tablet 50 mg PO HS RF: 0 levothyroxine 50 mcg Tablet 50 mcg PO QAM RF: 0 oxycodone-acetaminophen [Percocet] 5-325 mg tablet 1 tab PO Q6H PRN (Reason: pain) Qty: 14 RF: 0 cyclobenzaprine 10 mg tablet 10 mg PO BID RF: 0 No Action Eliquis 5 mg tablet 10 mg PO BID RF: 0 Stand-Alone Forms: My [facility], Work/School Release (Inpt) [place]/Other Patient Handouts: PICC Discharge Orders: Discharge Order (Routine); Ordered 09/10/18 Ordered By: Doni Ryan Admission Data Admit Date/Time: 09/05/18 12:37 Attending Provider: Doni Ryan Admit Provider: Juana Chong Primary Care Provider: Israel Tee Other Providers: Juana Chong ; Yifan Zafar ; London Dye Service: Medical Other Interventions: Discharge Summary Assessment (RN) Last Done: 09/10/18 12:57 DC Date/Time DO NOT enter until pt leaves facility: 09/10/18 18:20
== END 2018-09-10 18:20 | disposition home or self-care (01) | DRG 854 ==
LOC: ED 09:37 → SUATTDRO 12:37 → 2W 12:37 → 3W 09-06 10:59